=== PATIENT | male | born 1955 | race Two or more races ===

== ENCOUNTER 2018-02-02 09:47 | Emergency (ER) | payer BC ==
[2018-02-02 09:59] VITALS: TEMP 98.1; BMI 40.7
[2018-02-02] MEDS ORDERED: ASPIRIN 81 MG CHEWABLE TABLETS PO ONE (11:24)
--- NOTE | 2018-02-02 11:39 | PDOC ---
History of Present Illness <Matti Leong - Last Filed: 02/02/18 13:12> - General History Source: Patient Exam Limitations: No Limitations - History of Present Illness Initial Comments: 02/02/18 12:13 The patient is a 62 year old female with past medical history of hypertension who presents to the ED with complaints of headache and elevated blood pressure since yesterday. He reports a squeezing headache with associated blurred vision and states this is consistent whenever his blood pressure is elevated. He reports going to his primary yesterday after onset of symptoms and monitored his blood pressure there. He was then sent home and realized his blood pressure remained elevated. He denies any associated chest pain, palpitations, shortness of breath, or focal neurological deficits. Denies any fevers/chills. PCP: Dr. Darlyn Friend: Former smoker. Denies any drugs/alcohol use. <Chantel Leslie - Last Filed: 02/02/18 14:27> - General Chief Complaint: Blood Pressure Problem Stated Complaint: BLOOD PRESSURE PROBLEM Time Seen by Provider: 02/02/18 11:24 Past History - Past Medical History COPD: No HTN: Yes - Surgical History Appendectomy: Yes - Immunization History Immunization Up to Date: Yes - Suicide/Smoking/Psychosocial Hx Smoking History: Former smoker Have you smoked in the past 12 months: No If you are a former smoker, when did you quit?: 22 YEARS AGO Information on smoking cessation initiated: No Hx Alcohol Use: No Drug/Substance Use Hx: No <Matti Leong - Last Filed: 02/02/18 13:12> <Chantel Leslie - Last Filed: 02/02/18 14:27> - Past Medical History Allergies/Adverse Reactions: Allergies Allergy/AdvReac Type Severity Reaction Status Date / Time No Known Drug Allergies Allergy Verified 02/02/18 09:59 Home Medications: Ambulatory Orders Nebivolol HCl [Bystolic] 10 mg PO BID 08/02/12 Olmesartan Med/Amlodipine/Hctz [Tribenzor 40-10-25 mg Tablet] 1 each PO DAILY Aspirin [[place] Aspirin] 81 mg PO DAILY 06/17/15 Review of Systems - Review of Systems Constitutional: No: Chills, Fever HEENTM: No: Recent change in vision, Double Vision Respiratory: No: Cough, Orthopnea, Shortness of Breath, SOB with Exertion Cardiac (ROS): No: Chest Pain, Edema, Syncope ABD/GI: No: Nausea, Vomiting Neurological: Yes: Headache. No: Weakness, Dizziness All Other Systems: Reviewed and Negative <Matti Leong - Last Filed: 02/02/18 13:12> *Physical Exam - Vital Signs Last Vital Signs Temp Pulse Resp BP Pulse Ox 98.1 F 58 L 18 119/112 96 02/02/18 09:55 02/02/18 09:55 02/02/18 09:55 02/02/18 09:55 02/02/18 09:55 <Matti Leong - Last Filed: 02/02/18 13:12> - Vital Signs Last Vital Signs Temp Pulse Resp BP Pulse Ox 98.1 F 58 L 18 119/112 96 02/02/18 09:55 02/02/18 09:55 02/02/18 09:55 02/02/18 09:55 02/02/18 09:55 - Physical Exam Comments: 02/02/18 12:13 GENERAL: The patient is awake, alert, and fully oriented, in no acute distress. HEAD: Normal with no signs of trauma. EYES: Pupils equal, round and reactive to light, extraocular movements intact, sclera anicteric, conjunctiva clear with no pallor. ENT: Ears normal, nares patent, oropharynx clear without exudates. Moist mucous membranes. NECK: Normal range of motion, supple without lymphadenopathy, JVD, or masses. LUNGS: Breath sounds equal, clear to auscultation bilaterally. No wheeze/ crackles. HEART: Regular rate and rhythm, normal S1 and S2 without murmur or rub. ABDOMEN: Soft/nontender/nondistended. BS wnl. No guarding or rebound. No palpable masses. No hepatosplenomegaly. EXTREMITIES: Normal range of motion, no edema. No clubbing or cyanosis. No cords, erythema, or tenderness. PSYCH: Normal mood, normal affect. SKIN: Warm, Dry, normal turgor, no rashes or lesions noted. NEURO: Mental status: The patient is alert and oriented x3. Cranial nerves: Cranial nerves II through XII are intact Motor: The upper extremities are 5 over 5 in all muscle groups. The lower extremities are 5 over 5 in all muscle groups. No pronator drift. Sensation: Sensation is intact to light touch throughout. Cerebellar: Roiihr-dgptch-ynbh is normal in both upper extremities. Heel-knee- winkler is normal in both lower extremities. Reflexes: 2+ and symmetric in the upper and lower extremities. Gait: Normal. Heel and toe walking are normal. Tandem gait is normal. <Chantel Leslie - Last Filed: 02/02/18 14:27> Heart Score/ECG Review #1 ECG reviewed & interpreted by me at: 11:33 General ECG Interpretation: Sinus Rhythm, Normal Rate (54), Normal Intervals ( qtc 394), No acute ischemic changes (inf Q waves) <Matti Leong - Last Filed: 02/02/18 13:12> ED Treatment Course - LABORATORY CBC & Chemistry Diagram: 02/02/18 11:32 02/02/18 11:32 - RADIOLOGY Radiology Studies Ordered: Category Date Time Status CHEST X-RAY PORTABLE* [RAD] Stat Radiology 02/02/18 11:25 Ordered <Matti Leong - Last Filed: 02/02/18 13:12> - LABORATORY CBC & Chemistry Diagram: 02/02/18 11:32 02/02/18 11:32 - ADDITIONAL ORDERS Additional order review: 02/02/18 11:32 RBC 5.42 MCV 91.8 MCHC 33.8 RDW 13.7 MPV 9.4 Neutrophils % 68.0 Lymphocytes % 19.9 D Monocytes % 8.6 Eosinophils % 2.5 Basophils % 1.0 - RADIOLOGY Radiograph Interpretation: 02/02/18 12:[address] by [address] Reese reports no acute intracranial pathology. 02/02/18 14:27 Chest X-ray as reviewed by Dr. Rondon reports weak inspiration and congestive changes. - Medications Given in the ED: ED Medications Discontinued Medications Generic Name Dose Route Start Last Admin Trade Name Freq PRN Reason Stop Dose Admin Aspirin 162 mg 02/02/18 11:24 02/02/18 11:52 Asa - PO 02/02/18 11:25 162 mg ONCE ONE Administration Clonidine 0.1 mg 02/02/18 11:47 02/02/18 11:52 Catapres - PO 02/02/18 11:48 0.1 mg ONCE ONE Administration Hydralazine HCl 25 mg 02/02/18 11:47 02/02/18 11:52 Apresoline - PO 02/02/18 11:48 25 mg ONCE ONE Administration <Chantel Leslie - Last Filed: 02/02/18 14:27> Medical Decision Making - Medical Decision Making 02/02/18 11:59 A portion of this note was documented by scribe services under my direction. I have reviewed the details of the note, within reason, and agree with the documentation with the following case summary and management plan written by me. 62-year-old male with history of hypertension developed gradual onset mild headache yesterday that self resolves since then has been measuring his blood pressure and noted to be elevated at 160/[address] Santizo yesterday and spent the day in the office monitoring his blood pressure, this morning his blood pressure remained elevated so he presents for evaluation. Complaining of mild persistent headache, no vision changes or speech changes/nausea/vomiting/ focal deficit/chest pain/shortness of breath. No recent changes to his medications, denies any other complaints. 150/109, hr 62 Well-appearing, speaking full sentences, no distress Pupils are equal round reactive to light, neck is supple Heart and lungs are clear and regular Abdomen benign Neurologically intact 52-year-old male with elevated blood pressure, asymptomatic except for mild headache without focal neurological findings. Seen by PMD yesterday, presents here for persistent blood pressure elevation. Check labs, CT head, EKG Dose additional hydralazine and clonidine Reassess and disposition accordingly 02/02/18 13:13 labs wnl, ct head without acute pathology. BP 161/99, slightly improved diastolic. Remains sxs free, feels well. CXR with slight congestion, no acute pathology. <Matti Leong - Last Filed: 02/02/18 13:12> *DC/Admit/Observation/Transfer <Matti Leong - Last Filed: 02/02/18 13:12> - Attestations Scribe Attestion: 02/02/18 12:14 Documentation prepared by Chantel Leslie, acting as general medical practitioner for Matti Leong MD. <Chantel Leslie - Last Filed: 02/02/18 14:27> Diagnosis at time of Disposition: Hypertension Qualifiers: Hypertension type: unspecified Qualified Code(s): I10 - Essential (primary) hypertension - Discharge Dispostion Disposition: HOME Condition at time of disposition: Stable - Referrals Referrals: Liya Santizo MD [Primary Care Provider] - - Patient Instructions Printed Discharge Instructions: DI for High Blood Pressure Additional Instructions: Activity as tolerated. Stay hydrated. Blood tests and a CT of the head today showed no acute abnormalities. Your blood pressure was slightly improved after additional doses of your medications , but is still a bit higher than your usual. Monitor your blood pressure IF you feel unwell or develop any new symptoms. Otherwise check your blood pressure in a few days to see if it remains high. If so, contact Dr. Santizo as there may need to be changes to your medications or doses. Continue your medications as previously prescribed by your physician. You should follow up with Dr. Santizo as soon as possible regarding today's emergency department visit. Return to the emergency department for any new or concerning symptoms, particularly persistent or worsening headache, chest pain or difficulty breathing, vomiting, vision changes or speech changes or focal weakness. - Post Discharge Activity
[2018-02-02 11:44] LABS: EOS % 2.5 % (0-4.5); HEMATOCRIT 49.8 % (35.4-49); HEMOGLOBIN 16.8 GM/dL (11.7-16.9); LYMPH % 19.9 % (8-40); MCH 31.1 pg (25.7-33.7); MCHC 33.8 g/dl (32.0-35.9); MEAN CELL VOLUME 91.8 fl (80-96); MEAN PLT VOLUME 9.4 fl (7.5-11.1); MONO % 8.6 % (3.8-10.2); PLATELET COUNT 234 K/MM3 (134-434); RBC 5.42 M/mm3 (4.00-5.60); RDW 13.7 % (11.9-15.9); WHITE BLOOD COUNT 8.6 K/mm3 (4.0-10.0)
[2018-02-02] MEDS ORDERED: cloNIDine HCL 0.1 MG TABLET PO ONE (11:47)
[2018-02-02] MEDS ORDERED: hydrALAZINE HCL 25 MG TABLET (FP) PO ONE (11:47)
[2018-02-02] MEDS ORDERED: cloNIDine HCL 0.1 MG TABLET ONE (11:52)
[2018-02-02] MEDS ORDERED: hydrALAZINE HCL 25 MG TABLET (FP) ONE (11:52)
[2018-02-02] MEDS ORDERED: ASPIRIN 81 MG CHEWABLE TABLETS ONE (11:52)
[2018-02-02 12:14] LABS: INR 0.98 (0.83-1.09); PROTHROMBIN TIME (PATIENT) 11.1 SEC (9.7-13.0)
[2018-02-02 12:15] LABS: ALBUMIN 3.8 g/dl (3.4-5.0); ANION GAP 8 MMOL/L (8-16); BILIRUBIN,TOTAL 0.5 mg/dL (0.2-1.0); BLOOD UREA NITROGEN 16 mg/dL (7-18); CALCIUM 9.1 mg/dL (8.5-10.1); CHLORIDE 105 mmol/L (98-107); CO2 31 mmol/L (21-32); CREATININE 0.9 mg/dL (0.7-1.3); GLUCOSE,RANDOM 91 mg/dL (74-106); MAGNESIUM 2.5 mg/dL (1.8-2.4); POTASSIUM 3.9 mmol/L (3.5-5.1); SGOT/AST 20 U/L (15-37); SGPT/ALT 30 U/L (12-78); SODIUM 144 mmol/L (136-145); TOT PROT 7.3 g/dl (6.4-8.2)
[2018-02-02 12:18] LABS: ALK PHOS 102 U/L (45-117)
[2018-02-02 13:39] VITALS: BP 133/89; PULSE 56
--- NOTE | 2018-02-03 10:32 | EKG ---
Test Reason : Blood Pressure : / mmHG Vent. Rate : 054 BPM Atrial Rate : 054 BPM P-R Int : 152 ms QRS Dur : 090 ms QT Int : 416 ms P-R-T Axes : 027 -09 -14 degrees QTc Int : 394 ms SINUS BRADYCARDIA INFERIOR INFARCT (CITED ON OR BEFORE 19-JUL-2012) ABNORMAL ECG WHEN COMPARED WITH ECG OF 17-JUN-2015 23:15, NONSPECIFIC T WAVE ABNORMALITY NOW EVIDENT IN INFERIOR LEADS NONSPECIFIC T WAVE ABNORMALITY NO LONGER EVIDENT IN ANTERIOR LEADS Confirmed by MIR ELLIS, KULDEEP ([id number]) on 02/03/2018 10:32:14 AM Referred By: Confirmed By:KULDEEP HESTER MD
== END 2018-02-02 13:45 | disposition home or self-care (01) ==
LOC: JER 09:47
DX: I10 Essential (primary) hypertension (principal)
CPT/HCPCS: 36415; 70450-TC; 71045-TC-FY; 80053; 82550; 83735; 83880; 84484; 85025; 85610; 93005; 93010; 99282-25; J0735

== ENCOUNTER 2018-07-09 23:39 | Inpatient (IN) | payer BC, OTHER ==
--- NOTE | 2018-07-10 00:12 | PDOC ---
History of Present Illness - General Chief Complaint: Blood Pressure Problem Stated Complaint: HIGH BLOOD PRESURE Time Seen by Provider: 07/10/18 00:10 History Source: Patient Exam Limitations: No Limitations - History of Present Illness Initial Comments: 63 yo M w a pmh of HTN, dementia who presents to the ED with high blood pressure and a headache since 9:45 pm this evening. The headache feels like a band around his head but is not associated with any blurry vision, nausea, vomiting, or ataxia and was not worst at onset. He went over to his daughter and said he feels something is wrong, then she took his blood pressure realized it was very elevated and he took an extra one of his bystolic nebivolol pills - 20 mg as well as an extra atorvastatin. He denies any associated chest pain, palpitations, shortness of breath, focal neurological deficits, back pain, abdominal pain, fevers/chills, flank pain, difficulty breathing dysuria, frequency, or urgency. PCP: Dr. Darlyn Friend: Former smoker. Denies any drugs/alcohol use. PSH: None reported Allergies: NKA, NKDA Past History - Past Medical History Allergies/Adverse Reactions: Allergies Allergy/AdvReac Type Severity Reaction Status Date / Time No Known Drug Allergies Allergy Verified 07/09/18 23:59 Home Medications: Ambulatory Orders Nebivolol HCl [Bystolic] 10 mg PO BID 08/02/12 Olmesartan Med/Amlodipine/Hctz [Tribenzor 40-10-25 mg Tablet] 1 each PO DAILY Aspirin [[place] Aspirin] 81 mg PO DAILY 06/17/15 Valsartan [Diovan] 40 mg PO DAILY #30 tablet 07/10/18 COPD: No HTN: Yes - Surgical History Appendectomy: Yes - Immunization History Immunization Up to Date: Yes - Suicide/Smoking/Psychosocial Hx Smoking History: Never smoked Have you smoked in the past 12 months: No If you are a former smoker, when did you quit?: 22 YEARS AGO Information on smoking cessation initiated: No Hx Alcohol Use: No Drug/Substance Use Hx: No Review of Systems - Review of Systems Able to Perform ROS?: Yes Comments:: CONSTITUTIONAL: Absent: fever, no chills, no fatigue EYES: Absent: visual changes ENT: Absent: ear pain, no sore throat CARDIOVASCULAR: Absent: chest pain, no palpitations RESPIRATORY: Absent: cough, no SOB GI: Absent: abdominal pain, no nausea, no vomiting, no constipation, no diarrhea GENITOURINARY: Absent: dysuria, no frequency, no hematuria MUSKULOSKELETAL: Absent: back pain, no arthralgia, no myalgia SKIN: Absent: rash NEURO: Present: headache *Physical Exam - Vital Signs Last Vital Signs Temp Pulse Resp BP Pulse Ox 98.1 F 54 L 20 204/131 H 96 07/09/18 23:59 07/09/18 23:59 07/09/18 23:59 07/09/18 23:59 07/09/18 23:59 - Physical Exam Comments: GENERAL: Well-appearing, well-nourished. No apparent distress. HEENT: Normocephalic, atraumatic. PERRL, EOM intact. CARDIOVASCULAR: Normal S1, S2. Bradycardic rate and regular rhythm. PULMONARY: No evidence of respiratory distress. Lungs clear to auscultation bilaterally. No wheezing, rales or rhonchi. ABDOMEN: Soft, non-distended, non-tender. EXTREMITIES: Normal ROM in all four extremities. No gross deformities. SKIN: Warm, dry. No rash NEUROLOGICAL: No focal neurological deficits. CN 2-12 grossly intact. No retinal hemorrhages. Normal Gait. Moderate Sedation - Procedure Monitoring Vital Signs: Procedure Monitoring Vital Signs Temperature 98.1 F 07/09/18 23:59 Pulse Rate 54 L 07/09/18 23:59 Respiratory Rate 20 07/09/18 23:59 Blood Pressure 204/131 H 07/09/18 23:59 O2 Sat by Pulse Oximetry (%) 96 07/09/18 23:59 ED Treatment Course - LABORATORY CBC & Chemistry Diagram: 07/10/18 00:30 07/10/18 00:30 Medical Decision Making - Medical Decision Making 63 yo M w a pmh of HTN, dementia who presents to the ED with high blood pressure and a headache since 9:45 pm this evening. The headache feels like a band around his head but is not associated with any blurry vision, nausea, vomiting, or ataxia and was not worst at onset. He went over to his daughter and said he feels something is wrong, then she took his blood pressure realized it was very elevated and he took an extra one of his bystolic nebivolol pills - 20 mg as well as an extra atorvastatin. 185/110 BP at bedside heart rate 56 - likely due to taking nebivolol DDx IBNLT: Hypertensive emergency vs urgency, hypertensive encephelopathy, CVA vs TIA, meningitis vs encephelatis, cluster vs migraine vs tension headache Plan: Labs, Urine, EKG, CXR, Head CT, lower BP, re-assess. Labs unremarkable other than a BUN of 24 and 1+ proteinura - likely a result of uncontrolled hypertension. Head CT unremarkable. BP will not go down despite attempting to lower it with nitroglycerin sublingually, paste, clonidine and diovan Consulted Dr. [facility]: They reccommend trying IV hydralazine and then his po hydralazine. *DC/Admit/Observation/Transfer Diagnosis at time of Disposition: Hypertensive urgency, malignant - Discharge Dispostion Decision to Admit order: Yes - Prescriptions Prescriptions: Valsartan [Diovan] 40 mg PO DAILY #30 tablet - Referrals - Patient Instructions - Post Discharge Activity
[2018-07-10] MEDS ORDERED: LABETALOL HCL 5 MG/1 ML (100MG/20 ML VIAL) IVPUSH STA (00:19)
--- NOTE | 2018-07-10 00:21 | PDOC ---
Attending Attestation - HPI HPI: 07/10/18 01:03 The patient is a 63 year old male with a significant past medical history of HTN and dementia who presents to the ED with headache and nausea at 9:45 pm earlier today. He states he suddenly felt off. Patients daughter took the patients blood pressure and it read 220/110/ Patient took his HTN medication with no relief. Denies blurry vision. Denies fever. Denies chest pain or shortness of breath. Denies abdominal pain, nausea, vomiting, diarrhea. Denies any other symptoms. - Physicial Exam PE: 07/10/18 01:03 GENERAL: Well developed, well nourished. Awake and alert. No acute distress. HEENT: Normocephalic, atraumatic. PERRLA, EOMI. No conjunctival pallor. Sclera are non- icteric. Moist mucous membranes. Oropharynx is clear. NECK: Supple. Full ROM. No JVD. Carotid pulses 2+ and symmetric, without bruits. No thyromegaly. No lymphadenopathy. CARDIOVASCULAR: Regular rate and rhythm. No murmurs, rubs, or gallops. Distal pulses are 2+ and symmetric. PULMONARY: No evidence of respiratory distress. Lungs clear to auscultation bilaterally. No wheezing, rales or rhonchi. ABDOMINAL: Soft. Non-tender. Non-distended. No rebound or guarding. No organomegaly. Normoactive bowel sounds. MUSCULOSKELETAL Normal range of motion at all joints. No bony deformities or tenderness. No CVA tenderness. EXTREMITIES: + bilateral pitting edema in the lower extremities, up to the calf. No cyanosis. No clubbing. No calf tenderness. SKIN: Warm and dry. Normal capillary refill. No rashes. No jaundice. NEUROLOGICAL: Alert, awake, appropriate. Cranial nerves 2-12 intact. No deficits to light touch and temperature in face, upper extremities and lower extremities. No motor deficits in the in face, upper extremities and lower extremities. Normoreflexic in the upper and lower extremities. Normal speech. Toes are down- going bilaterally. Gait is normal without ataxia. PSYCHIATRIC: Cooperative. Good eye contact. Appropriate mood and affect. <Parker Gonsalves - Last Filed: 07/10/18 01:03> - Resident Resident Name: Jason Sanchez - ED Attending Attestation I have performed the following: I have examined & evaluated the patient, The case was reviewed & discussed with the resident, I agree w/resident's findings & plan - Medical Decision Making 07/10/18 01:36 Patient Name: YOLIS SUAREZ THIS IS A PRELIMINARY REPORT FROM [facility] DATE OF SERVICE: 2018-07-10 01:24:04 IMAGES: 172 EXAM: HEAD CT WITHOUT CONTRAST HISTORY: Headache COMPARISON: None. FINDINGS: Brain parenchyma is normal in attenuation with no mass or hematoma. There is no midline shift. Euabnks and white matter differentiation is normal. Ventricles are normal. Sulci and extra-axial CSF spaces are normal. Intracranial vascular structures are normal in attenuation. There is no calvarial fracture. Paranasal sinuses are normally aerated. IMPRESSION: No acute findings 07/10/18 06:58 Daughter AMBREEN (works in the hospital) [phone] 07/14/18 22:08 Pt will be admitted <Lizzie Foster - Last Filed: 07/14/18 22:08> Attestations - Attestations 07/10/18 01:03 Documentation prepared by Parker Gonsalves, acting as medical device sales for Lizzie Foster MD <Parker Gonsalves - Last Filed: 07/10/18 01:03>
[2018-07-10] MEDS ORDERED: NITROGLYCERIN SUBLINGUAL 1/150 0.4 MG TAB SL ONE (00:28)
[2018-07-10] MEDS ORDERED: VALSARTAN 40 MG TABLET (FP) PO ONE ×2 (00:53→02:04)
[2018-07-10] MEDS ORDERED: NITROGLYCERIN 2% OINTMENT - 1GM PACKET TD ONE ×3 (00:53→01:15)
[2018-07-10 00:54] LABS: BASO % 0.9 % (0-2.0); EOS % 3.2 % (0-4.5); HEMATOCRIT 47.5 % (35.4-49); HEMOGLOBIN 16.4 GM/dL (11.7-16.9); LYMPH % 28.5 % (8-40); MCH 32.1 pg (25.7-33.7); MCHC 34.5 g/dl (32.0-35.9); MEAN PLT VOLUME 9.7 fl (7.5-11.1); MONO % 11.2 % (3.8-10.2); NEUT % 56.2 % (42.8-82.8); PLATELET COUNT 204 K/MM3 (134-434); RBC 5.11 M/mm3 (4.00-5.60); RDW 13.8 % (11.9-15.9); WHITE BLOOD COUNT 6.9 K/mm3 (4.0-10.0)
[2018-07-10 01:08] LABS: INR 0.95 (0.83-1.09); PROTHROMBIN TIME (PATIENT) 11.2 SEC (9.7-13.0)
[2018-07-10] MEDS ORDERED: VALSARTAN 80 MG TABLET (UD) ONE ×2 (01:14→02:08)
[2018-07-10 01:23] LABS: URINE APPEARANCE CLEAR; URINE BILIRUBIN NEGATIVE (<2.0 mg/dL); URINE COLOR YELLOW; URINE GLUCOSE (UA) NEGATIVE (NEGATIVE); URINE KETONE NEGATIVE (NEGATIVE); URINE LEUK ESTERASE NEGATIVE (NEGATIVE); URINE NITRITE NEGATIVE (NEGATIVE); URINE PROTEIN 1+ (NEGATIVE); URINE UROBILINOGEN NEGATIVE mg/dL (0.2-1.0)
[2018-07-10 01:25] LABS: ALBUMIN 3.5 g/dl (3.4-5.0); ALK PHOS 105 U/L (45-117); ANION GAP 5 MMOL/L (8-16); BILIRUBIN,TOTAL 0.3 mg/dL (0.2-1); BLOOD UREA NITROGEN 24 mg/dL (7-18); CALCIUM 8.6 mg/dL (8.5-10.1); CHLORIDE 108 mmol/L (98-107); CO2 30 mmol/L (21-32); GLUCOSE,RANDOM 125 mg/dL (74-106); POTASSIUM 4.2 mmol/L (3.5-5.1); SGOT/AST 20 U/L (15-37); SGPT/ALT 28 U/L (13-61); SODIUM 143 mmol/L (136-145); TOT PROT 6.5 g/dl (6.4-8.2)
[2018-07-10 01:40] LABS: EPI CELLS RARE /HPF (FEW); URINE HYALINE CAST 4 /lpf; URINE MUCUS MODERATE
[2018-07-10] MEDS ORDERED: cloNIDine HCL 0.1 MG TABLET PO ONE (02:03)
[2018-07-10] MEDS ORDERED: cloNIDine HCL 0.1 MG TABLET ONE (02:08)
[2018-07-10] MEDS ORDERED: morphine CARPU-JECT 2 MG/1 ML DISP.SYRIN IVPUSH ONE (04:00)
[2018-07-10] MEDS ORDERED: hydrALAZINE HCL 20 MG/ML VIAL IVPUSH ONE (04:09)
[2018-07-10] MEDS ORDERED: MORPHINE SULFATE 2 MG/ML VIAL ONE (04:28)
[2018-07-10] MEDS ORDERED: hydrALAZINE HCL 20 MG/ML VIAL ONE (04:29)
--- NOTE | 2018-07-10 04:33 | HP ---
Admitting History and Physical - Primary Care Physician PCP: Liya Santizo - Admission Chief Complaint: Elevated Blood Pressure, Headache History of Present Illness: This is a 63 y/o man PMHx of HTN, Dementia (mild). Who presents to the ED with elevated BP and headache since 9pm last night. Patient reports the headache as a type band around his head. He reports that his daughter took his BP and it was elevated and he took another dose of his Bystolic and Lipitor. Patient denies chest pain, palpitations, SOB, dizziness, numbness, AP, N/V/D, constipation, dysuria. 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) Cardiovascular: Yes: HTN - Past Surgical History Past Surgical History: Yes: Appendectomy - Smoking History Smoking history: Former smoker Have you smoked in the past 12 months: No If you are a former smoker, when did you quit?: 22 YEARS AGO - Alcohol/Substance Use Hx Alcohol Use: Yes (occasional) History of Substance Use: reports: None - Social History Usual Living Arrangement: Yes: With Spouse ADL: Independent History of Recent Travel: No Home Medications - Allergies Allergies/Adverse Reactions: Allergies Allergy/AdvReac Type Severity Reaction Status Date / Time No Known Drug Allergies Allergy Verified 07/09/18 23:59 - Home Medications Home Medications: Ambulatory Orders Nebivolol HCl [Bystolic] 10 mg PO BID 08/02/12 Aspirin [[place] Aspirin] 81 mg PO DAILY 06/17/15 Atorvastatin Ca [Lipitor] 40 mg PO HS 07/10/18 Valsartan [Diovan] 40 mg PO DAILY #30 tablet 07/10/18 Family Disease History - Family Disease History Family Disease History: Heart Disease: Mother (HTN), CA: Brother (Liver ) Review of Systems - Review of Systems Constitutional: reports: No Symptoms Eyes: reports: No Symptoms HENT: reports: No Symptoms Neck: reports: No Symptoms Cardiovascular: reports: No Symptoms Respiratory: reports: No Symptoms Gastrointestinal: reports: No Symptoms Genitourinary: reports: No Symptoms Breasts: reports: No Symptoms Reported Musculoskeletal: reports: No Symptoms Integumentary: reports: No Symptoms Neurological: reports: Headache Endocrine: reports: No Symptoms Hematology/Lymphatic: reports: No Symptoms Psychiatric: reports: No Symptoms Physical Examination Vital Signs: Vital Signs Temperature 98.1 F 07/09/18 23:59 Pulse Rate 54 L 07/09/18 23:59 Respiratory Rate 20 07/09/18 23:59 Blood Pressure 204/131 H 07/09/18 23:59 O2 Sat by Pulse Oximetry (%) 96 07/09/18 23:59 Constitutional: Yes: Well Nourished, No Distress, Calm Eyes: Yes: WNL, Conjunctiva Clear, EOM Intact, PERRL HENT: Yes: WNL, Atraumatic, Normocephalic Neck: Yes: WNL, Supple, Trachea Midline Cardiovascular: Yes: Regular Rate and Rhythm, Murmur (systolic), S1, S2 Respiratory: Yes: CTA Bilaterally, Hyperresonant Gastrointestinal: Yes: WNL Renal/: Yes: WNL Breast(s): Yes: WNL Musculoskeletal: Yes: WNL Extremities: Yes: WNL Edema: No Peripheral Pulses WNL: Yes Neurological: Yes: WNL, Alert, Oriented, Cran Nerves II-XII Intact ...Motor Strength: WNL Psychiatric: Yes: WNL, Alert, Oriented Labs: CBC, BMP 07/10/18 00:30 07/10/18 00:30 Imaging - Results Chest X-ray: Report Reviewed (No acute pathology), Image Reviewed Cat Scan: Report Reviewed (No ICH, mass or lesion), Image Reviewed EKG: Image Reviewed (NSR, inferior infarct age undetermined) Problem List - Problems (1) Hypertensive urgency, malignant Assessment/Plan: Uncontrolled HTN Diovan, Clonidine, Nitropaste, NTG sl, Hydralazine given in ED without improvement Continue cardiac monitoring Appreciate Cardiology consult Head CT- neg ICH EKG- NSR inferior infarct, age undetermined, no acute changes compared to prior study 02/02/18 Renal US r/o stenosis Continue home meds with additional agent for improved response Monitor CBC, BMP Seizure Precautions Fall Precautions Code(s): I16.0 - HYPERTENSIVE URGENCY (2) Headache Assessment/Plan: Likely secondary to elevated BP Percocet given in ED Tylenol prn Code(s): R51 - HEADACHE Qualifiers: Headache type: unspecified Headache chronicity pattern: unspecified pattern Intractability: not intractable Qualified Code(s): R51 - Headache (3) Dementia Assessment/Plan: Mild, appears functional Continue Aricept Code(s): F03.90 - UNSPECIFIED DEMENTIA WITHOUT BEHAVIORAL DISTURBANCE Assessment/Plan This is a 63 y/o man PMHx of: HTN, Dementia admitted to Telemetry for Hypertensive Urgency for further evaluation of their emergent condition. Plan: See Problem List FEN PO fluids as tolerated Replete lytes prn Low Na Diet DVT ppx OOB SCDs Heparin SQ Dispo: Requires Inpatient Care Visit type - Emergency Visit Emergency Visit: Yes ED Registration Date: 07/10/18 Care time: The patient presented to the Emergency Department on the above date and was hospitalized for further evaluation of their emergent condition. - New Patient This patient is new to me today: Yes Date on this admission: 07/10/18 - Critical Care Critical Care patient: No
[2018-07-10 09:40] LABS: BASO % 0.9 % (0-2.0); EOS % 0.8 % (0-4.5); HEMATOCRIT 47.7 % (35.4-49); HEMOGLOBIN 16.8 GM/dL (11.7-16.9); MCH 32.6 pg (25.7-33.7); MCHC 35.2 g/dl (32.0-35.9); MEAN CELL VOLUME 92.7 fl (80-96); MEAN PLT VOLUME 9.6 fl (7.5-11.1); MONO % 7.2 % (3.8-10.2); NEUT % 71.1 % (42.8-82.8); PLATELET COUNT 191 K/MM3 (134-434); RBC 5.14 M/mm3 (4.00-5.60); RDW 13.6 % (11.9-15.9); WHITE BLOOD COUNT 7.7 K/mm3 (4.0-10.0)
--- NOTE | 2018-07-10 09:50 | EKG ---
Test Reason : Blood Pressure : / mmHG Vent. Rate : 062 BPM Atrial Rate : 062 BPM P-R Int : 168 ms QRS Dur : 090 ms QT Int : 434 ms P-R-T Axes : 024 -20 -28 degrees QTc Int : 440 ms NORMAL SINUS RHYTHM INFERIOR INFARCT (CITED ON OR BEFORE 19-JUL-2012) ABNORMAL ECG WHEN COMPARED WITH ECG OF 02-FEB-2018 11:33, NO SIGNIFICANT CHANGE WAS FOUND Confirmed by LIBBY ELLIS, JESSICA ([id number]) on 07/10/2018 9:50:32 AM Referred By: Confirmed By:JESSICA SOUZA MD
[2018-07-10 10:41] LABS: BLOOD UREA NITROGEN 18 mg/dL (7-18); CHLORIDE 109 mmol/L (98-107); CO2 25 mmol/L (21-32); CREATININE 0.8 mg/dL (0.55-1.3); GLUCOSE,RANDOM 124 mg/dL (74-106); POTASSIUM 3.7 mmol/L (3.5-5.1); SODIUM 142 mmol/L (136-145)
[2018-07-10 10:42] LABS: ANION GAP 8 MMOL/L (8-16); CALCIUM 8.6 mg/dL (8.5-10.1); MAGNESIUM 2.1 mg/dL (1.8-2.4); PHOSPHOROUS 2.6 mg/dL (2.5-4.9)
--- NOTE | 2018-07-10 10:52 | PN ---
Progress Note, Physician Chief Complaint: patient admitted for headache and elevated blood pressure, per patient he is complaint with his medications but yesterday he started having headache and checked his BP it was very high in 170's and came to the ER on ER he got labetolol and hydralazine clonidine and diovan currently in bed no chest pain no dizziness has a slight headache - Current Medication List Current Medications: Active Medications Aspirin (Asa -) 81 mg PO DAILY [facility] Atorvastatin Calcium (Lipitor -) 40 mg PO HS [facility] Clonidine (Catapres -) 0.1 mg PO BID [facility] Heparin Sodium (Porcine) (Heparin -) 5,000 unit SQ BID [facility] Hydralazine HCl (Apresoline -) 25 mg PO TID [facility] - Objective Vital Signs: Vital Signs Temperature 97.6 F 07/10/18 07:34 Pulse Rate 63 07/10/18 07:34 Respiratory Rate 15 07/10/18 07:34 Blood Pressure 178/119 H 07/10/18 07:34 O2 Sat by Pulse Oximetry (%) 98 07/10/18 07:34 Constitutional: Yes: Calm Cardiovascular: Yes: Regular Rate and Rhythm, S1, S2 Respiratory: Yes: CTA Bilaterally Gastrointestinal: Yes: Normal Bowel Sounds, Soft Edema: No Neurological: Yes: Alert, Oriented Labs: CBC, BMP 07/10/18 09:25 07/10/18 09:25 INR, PTT INR 0.95 (0.83-1.09) 07/10/18 00:30 Problem List - Problems (1) Dementia Assessment/Plan: aricept 5mg Code(s): F03.90 - UNSPECIFIED DEMENTIA WITHOUT BEHAVIORAL DISTURBANCE (2) Headache Assessment/Plan: secondary to elevated BP telemetry cardiology eval cloniidine hydralazine bystolic ct head negative dvt ppx scds early ambulation Code(s): R51 - HEADACHE Qualifiers: Headache type: unspecified Headache chronicity pattern: unspecified pattern Intractability: not intractable Qualified Code(s): R51 - Headache (3) Hypertension Assessment/Plan: clonidine 0.1mg bid hydralazine 25mg tid bystolic 20mg telemetry echo Code(s): I10 - ESSENTIAL (PRIMARY) HYPERTENSION Qualifiers: Hypertension type: unspecified Qualified Code(s): I10 - Essential (primary ) hypertension
[2018-07-10] MEDS ORDERED: hydrALAZINE HCL 25 MG TABLET (FP) ONE (13:42)
[2018-07-10] MEDS ORDERED: ASPIRIN 81 MG CHEWABLE TABLETS ONE (13:42)
[2018-07-10] MEDS ORDERED: HEPARIN NA (PORCINE) 5,000 UNITS/ML 1ML VIAL ONE (13:42)
--- NOTE | 2018-07-10 13:50 | CON.CARD ---
Consult Consult Specialty:: cardiology Referred by:: Darlyn Reason for Consultation:: Symptomatic hypertension - History of Present Illness Chief Complaint: Headache and generalized weakness History of Present Illness: The patient is a 63-year-old obese man, with mild dementia, hypertension, now admitted with generalized weakness and elevated blood pressure. The patient looks comfortable. Denies chest pains and shortness of breath. No palpitations. 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 Cardio/Vascular: Yes: HTN - Alcohol/Substance Use Hx Alcohol Use: No History of Substance Use: reports: None - Smoking History Smoking history: Never smoked Have you smoked in the past 12 months: No If you are a former smoker, when did you quit?: 22 YEARS AGO Home Medications - Allergies Allergies/Adverse Reactions: Allergies Allergy/AdvReac Type Severity Reaction Status Date / Time No Known Drug Allergies Allergy Verified 07/09/18 23:59 - Home Medications Home Medications: Ambulatory Orders Nebivolol HCl [Bystolic] 10 mg PO BID 08/02/12 Aspirin [[place] Aspirin] 81 mg PO DAILY 06/17/15 Atorvastatin Ca [Lipitor] 40 mg PO HS 07/10/18 Valsartan [Diovan] 40 mg PO DAILY #30 tablet 07/10/18 Review of Systems - Review of Systems Constitutional: reports: Malaise Eyes: reports: No Symptoms HENT: reports: No Symptoms Neck: reports: Stiffness Cardiovascular: reports: No Symptoms Respiratory: reports: No Symptoms Gastrointestinal: reports: No Symptoms Genitourinary: reports: No Symptoms Breasts: reports: No Symptoms Reported Musculoskeletal: reports: No Symptoms Integumentary: reports: No Symptoms Neurological: reports: Headache Endocrine: reports: No Symptoms Hematology/Lymphatic: reports: No Symptoms Psychiatric: reports: No Symptoms Vital Signs: Vital Signs Temperature 97.6 F 07/10/18 07:34 Pulse Rate 63 07/10/18 07:34 Respiratory Rate 15 07/10/18 07:34 Blood Pressure 178/119 H 07/10/18 07:34 O2 Sat by Pulse Oximetry (%) 98 07/10/18 07:34 Constitutional: Yes: Well Nourished, No Distress, Calm Eyes: Yes: WNL, Conjunctiva Clear, EOM Intact HENT: Yes: WNL, Atraumatic, Normocephalic Neck: Yes: WNL, Supple, Trachea Midline Respiratory: Yes: WNL, CTA Bilaterally, Hyperresonant Gastrointestinal: Yes: WNL, Normal Bowel Sounds, Soft Renal/: Yes: WNL Cardiovascular: Yes: WNL, Regular Rate and Rhythm JVD: No Carotid Bruit: No PMI: Non-Displaced Heart Sounds: Yes: S1, S2 Murmur: Yes: Systolic Murmur, Grade 2 Musculoskeletal: Yes: WNL Extremities: Yes: WNL Edema: No Peripheral Pulses: 2+ Left Carotid, 2+ Right Carotid, 2+ Left Femoral, 2+ Right Femoral, 2+ Left Popliteal, 2+ Right Popliteal, 2+ Left Doralis Pedis, 2+ Right Dorsalis Pedis Integumentary: Yes: WNL Neurological: Yes: WNL ...Motor Strength: WNL Psychiatric: Yes: WNL - Other Data Labs, Other Data: CBC, BMP 07/10/18 09:25 07/10/18 09:25 INR, PTT INR 0.95 (0.83-1.09) 07/10/18 00:30 Troponin, BNP 07/10/18 07/10/18 00:30 00:30 Troponin I < 0.02 B-Natriuretic Peptide 58.8 Troponin, BNP 07/10/18 07/10/18 00:30 00:30 Troponin I < 0.02 B-Natriuretic Peptide 58.8 Assessment/Plan The patient is a 63-year-old obese man, with mild dementia, hypertension, now admitted with generalized weakness and elevated blood pressure. The patient looks comfortable. Denies chest pains and shortness of breath. No palpitations. There is no evidence of ischemia nor acute coronary syndrome. No CHF. The patient is in sinus rhythm. 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 There are no acute ECG changes. Would start Toprol-XL 50 mg daily. Increase clonidine to 3 times a day. Stop hydralazine. Consider Norvasc if the above measures are not sufficient. Please arrange for an echocardiogram. No need for cardiac monitoring. The patient is stable.
[2018-07-10] MEDS ORDERED: hydrALAZINE HCL 25 MG TABLET (FP) PO SCH (14:00)
--- NOTE | 2018-07-10 14:03 | ECHO ---
Name: TUNDE SUAREZOBERTO Exam:Adult Echocardiogram Study Date: 07/10/2018 07:27 AM Age: 63 yrs Reason For Study: HTN Height: 65 in Weight: 269 lb BSA: 2.2 m2 MMode/2D Measurements & Calculations IVSd: 1.3 cm Ao root diam: 3.1 cm LVIDd: 4.0 cm LA dimension: 3.0 cm LVIDs: 3.5 cm LVPWd: 1.0 cm EDV(Teich): 68.0 ml ESV(Teich): 49.4 ml Doppler Measurements & Calculations MV E max roberto: 64.0 cm/sec AI P1/2t: 459.3 msec MV A max roberto: 102.3 cm/sec MV E/A: 0.63 MV dec time: 0.13 sec AI max roberto: 211.7 cm/sec MR max roberto: 222.6 cm/sec AI max P.9 mmHg MR max P.8 mmHg AI dec slope: 135.0 cm/sec2 TR max roberto: 270.1 cm/sec Med Peak E' Roberto: 6.4 cm/sec TR max P.2 mmHg Med E/e': 10.0 Lat Peak E' Roberto: 8.8 cm/sec Lat E/e': 7.3 Procedure A complete two-dimensional transthoracic echocardiogram was performed (2D, M-mode, Doppler and color flow Doppler). Technically limited study. Left Ventricle The left ventricle is normal in size. There is mild concentric left ventricular hypertrophy. Left domitila tricular systolic function is normal. Ejection Fraction = 60-65%. Grade I diastolic dysfunction, (abnormal rel axation pattern). Ratio E/E'= 10. No regional wall motion abnormalities noted. Right Ventricle The right ventricle is normal size. The right ventricular systolic function is normal. Atria The left atrial size is normal. Right atrial size is normal. Mitral Valve The mitral valve is normal in structure and function. There is no mitral regurgitation noted. Tricuspid Valve The tricuspid valve is normal in structure and function. No tricuspid regurgitation. Aortic Valve The aortic valve is normal in structure and function. No aortic regurgitation is present. Pulmonic Valve The pulmonic valve is not well visualized. Great Vessels The aortic root is normal size. Pericardium/Pleura There is no pericardial effusion. Interpretation Summary Technically limited study The left ventricle is normal in size. There is mild concentric left ventricular hypertrophy. Left ventricular systolic function is normal. No regional wall motion abnormalities noted. Ejection Fraction = 60-65%. Grade I diastolic dysfunction, (abnormal relaxation pattern). Ratio E/E'= 10 The right ventricular systolic function is normal. The left atrial size is normal. Right atrial size is normal. No significant valvular regurgitations are seen There is no pericardial effusion. Previous study is not available for comparison Anibal Cat MD 07/10/2018 02:02 PM
[2018-07-10] MEDS: ATORVASTATIN CA 40 MG TABLET (FP) PO SCH (21:44)
[2018-07-10] MEDS: cloNIDine HCL 0.1 MG TABLET PO SCH (21:44)
[2018-07-10] MEDS: HEPARIN NA (PORCINE) 5,000 UNITS/ML 1ML VIAL SQ SCH (21:45)
[2018-07-10] MEDS ORDERED: cloNIDine HCL 0.1 MG TABLET PO SCH (22:00)
[2018-07-11] MEDS ORDERED: amLODIPine BESYLATE 5 MG TABLET (FP) PO ONE (01:50)
[2018-07-11] MEDS: cloNIDine HCL 0.1 MG TABLET PO SCH ×3 (06:07→21:26)
[2018-07-11 07:06] LABS: BASO % 0.8 % (0-2.0); EOS % 3.7 % (0-4.5); HEMOGLOBIN 15.9 GM/dL (11.7-16.9); LYMPH % 30.5 % (8-40); MCH 31.7 pg (25.7-33.7); MCHC 34.6 g/dl (32.0-35.9); MEAN CELL VOLUME 91.8 fl (80-96); MEAN PLT VOLUME 9.7 fl (7.5-11.1); MONO % 7.7 % (3.8-10.2); NEUT % 57.3 % (42.8-82.8); PLATELET COUNT 178 K/MM3 (134-434); RBC 5.02 M/mm3 (4.00-5.60); RDW 14.1 % (11.9-15.9); WHITE BLOOD COUNT 6.2 K/mm3 (4.0-10.0)
[2018-07-11 07:41] LABS: ALBUMIN 3.4 g/dl (3.4-5.0); ALK PHOS 90 U/L (45-117); ANION GAP 7 MMOL/L (8-16); BILIRUBIN,TOTAL 0.5 mg/dL (0.2-1); BLOOD UREA NITROGEN 18 mg/dL (7-18); CALCIUM 8.4 mg/dL (8.5-10.1); CHLORIDE 108 mmol/L (98-107); CHOLESTEROL 141 mg/dL (50-200); CO2 28 mmol/L (21-32); CREATININE 0.8 mg/dL (0.55-1.3); GLUCOSE,RANDOM 99 mg/dL (74-106); HDL CHOLESTEROL 42 mg/dL (40-60); POTASSIUM 3.8 mmol/L (3.5-5.1); SGOT/AST 14 U/L (15-37); SGPT/ALT 25 U/L (13-61); SODIUM 143 mmol/L (136-145); TOT PROT 6.3 g/dl (6.4-8.2); TRIGLYCERIDES 201 mg/dL (0-150)
[2018-07-11] MEDS: DONEPEZIL HCL 5 MG TABLET (FP) PO SCH (09:17)
[2018-07-11] MEDS: HEPARIN NA (PORCINE) 5,000 UNITS/ML 1ML VIAL SQ SCH ×3 (09:17→21:26)
[2018-07-11] MEDS: ASPIRIN 81 MG CHEWABLE TABLETS PO SCH ×2 (09:18→09:37)
--- NOTE | 2018-07-11 09:20 | PN ---
Progress Note, Physician - Current Medication List Current Medications: Active Medications Aspirin (Asa -) 81 mg PO DAILY [facility] Last Admin: 07/11/18 09:18 Dose: 81 mg Atorvastatin Calcium (Lipitor -) 40 mg PO HS [facility] Last Admin: 07/10/18 21:44 Dose: 40 mg Clonidine (Catapres -) 0.1 mg PO TID [facility] Last Admin: 07/11/18 06:07 Dose: 0.1 mg Donepezil HCl (Aricept -) 5 mg PO DAILY [facility] Last Admin: 07/11/18 09:17 Dose: 5 mg Heparin Sodium (Porcine) (Heparin -) 5,000 unit SQ BID [facility] Last Admin: 07/11/18 09:17 Dose: 5,000 unit Metoprolol Succinate (Toprol Xl -) 50 mg PO DAILY [facility] Last Admin: 07/11/18 09:17 Dose: 50 mg - Objective Vital Signs: Vital Signs Temperature 98.1 F 07/11/18 09:16 Pulse Rate 54 L 07/11/18 09:16 Respiratory Rate 18 07/11/18 09:16 Blood Pressure 147/96 07/11/18 09:16 O2 Sat by Pulse Oximetry (%) 98 07/10/18 16:42 Cardiovascular: Yes: Regular Rate and Rhythm Respiratory: Yes: Regular, CTA Bilaterally Gastrointestinal: Yes: Normal Bowel Sounds, Soft Labs: CBC, BMP 07/11/18 06:00 07/11/18 06:00 INR, PTT INR 0.95 (0.83-1.09) 07/10/18 00:30 Problem List - Problems (1) Hypertensive urgency, malignant Assessment/Plan: - l Orders cloNIDine HCL [Catapres -] 0.1 mg PO TID Amlodipine Besylate [Norvasc -] 5 mg PO DAILY Losartan Potassium [Cozaar -] 50 mg PO DAILY Metoprolol Succinate [Toprol Xl -] 50 mg PO DAILY Monitor bp on current meds Code(s): I16.0 - HYPERTENSIVE URGENCY (2) Dementia Assessment/Plan: on aricept Code(s): F03.90 - UNSPECIFIED DEMENTIA WITHOUT BEHAVIORAL DISTURBANCE (3) Headache Assessment/Plan: secondary to elevated BP telemetry cardiology eval ct head negative dvt ppx scds early ambulation Code(s): R51 - HEADACHE Qualifiers: Headache type: unspecified Headache chronicity pattern: unspecified pattern Intractability: not intractable Qualified Code(s): R51 - Headache
[2018-07-11] MEDS ORDERED: LOSARTAN POTASSIUM 50 MG TABLET (FP) PO SCH (10:00)
[2018-07-11] MEDS: amLODIPine BESYLATE 5 MG TABLET (FP) PO SCH (10:39)
[2018-07-11] MEDS: ATORVASTATIN CA 40 MG TABLET (FP) PO SCH (21:26)
--- NOTE | 2018-07-11 22:24 | PN ---
Progress Note, Physician Chief Complaint: Events noted Not in distress History of Present Illness: Patient was seen and examined. Awake and alert. Chart was reviewed Denies chest pain, SOB or palpitations Patient was seen by Dr. Hansen yesterday, but was switched to our service as patient is our office patient who sees Dr. Sam Callahan - Current Medication List Current Medications: Active Medications Amlodipine Besylate (Norvasc -) 5 mg PO DAILY [facility] Last Admin: 07/11/18 10:39 Dose: 5 mg Aspirin (Asa -) 81 mg PO DAILY [facility] Last Admin: 07/11/18 09:37 Dose: Not Given Atorvastatin Calcium (Lipitor -) 40 mg PO HS [facility] Last Admin: 07/11/18 21:26 Dose: 40 mg Clonidine (Catapres -) 0.1 mg PO TID [facility] Last Admin: 07/11/18 21:26 Dose: 0.1 mg Donepezil HCl (Aricept -) 5 mg PO DAILY [facility] Last Admin: 07/11/18 09:17 Dose: 5 mg Heparin Sodium (Porcine) (Heparin -) 5,000 unit SQ BID [facility] Last Admin: 07/11/18 21:26 Dose: 5,000 unit Losartan Potassium (Cozaar -) 50 mg PO DAILY [facility] Last Admin: 07/11/18 10:39 Dose: 50 mg Metoprolol Succinate (Toprol Xl -) 50 mg PO DAILY [facility] Last Admin: 07/11/18 09:17 Dose: 50 mg - Objective Vital Signs: Vital Signs Temperature 97.9 F 07/11/18 20:21 Pulse Rate 55 L 07/11/18 20:21 Respiratory Rate 18 07/11/18 20:21 Blood Pressure 155/97 07/11/18 20:21 O2 Sat by Pulse Oximetry (%) 94 L 07/11/18 20:21 Eyes: Yes: PERRL HENT: Yes: Atraumatic Neck: Yes: Supple Cardiovascular: Yes: Regular Rate and Rhythm, S1, S2 Respiratory: Yes: CTA Bilaterally Gastrointestinal: Yes: Normal Bowel Sounds, Soft. No: Tenderness Edema: No Additional Findings/Remarks: - Review of Systems Constitutional: denies: Chills, Fever Cardiovascular: denies: Chest Pain, Palpitations, Shortness of Breath Respiratory: denies: Cough, Hemoptysis, Orthopnea, PND, SOB, SOB on Exertion Gastrointestinal: denies: Abdominal Pain, Constipation, Diarrhea, Melena, Nausea , Rectal Bleeding, Vomiting Musculoskeletal: denies: Back Pain, Joint Pain Neurological: (+) Weakness, denies: Dizziness, denies: Headache, Seizure, Syncope Labs: CBC, BMP 07/11/18 06:00 07/11/18 06:00 INR, PTT INR 0.95 (0.83-1.09) 07/10/18 00:30 Problem List - Problems (1) Hypercholesterolemia Code(s): E78.00 - PURE HYPERCHOLESTEROLEMIA, UNSPECIFIED (2) Generalized weakness Code(s): R53.1 - WEAKNESS (3) Hypertensive urgency, malignant Code(s): I16.0 - HYPERTENSIVE URGENCY Assessment/Plan 1. HTN - not at goal 2. Hypercholesterolemia 3. Generalized weakness PLAN: 1. Continue Losartan 50 mg QD and uptitrate 2. Continue Amlodipine 5 mg QD and uptitrate 3. Clonidine 0.1 mg TID as tolerated 4. Currently started on Metoprolol ER 50 mg QD (patient was on Bystolic total of 20 mg daily at home) - will clarify 5. Continue Atorvastatin Further plans are to follow Anibal Cat MD
[2018-07-12] MEDS: cloNIDine HCL 0.1 MG TABLET PO SCH ×3 (05:40→21:17)
[2018-07-12] MEDS: amLODIPine BESYLATE 5 MG TABLET (FP) PO SCH (09:17)
[2018-07-12] MEDS: HEPARIN NA (PORCINE) 5,000 UNITS/ML 1ML VIAL SQ SCH ×2 (09:17→21:17)
[2018-07-12] MEDS: ASPIRIN 81 MG CHEWABLE TABLETS PO SCH (09:17)
[2018-07-12] MEDS: DONEPEZIL HCL 5 MG TABLET (FP) PO SCH (09:17)
--- NOTE | 2018-07-12 09:25 | PN ---
Progress Note, Physician History of Present Illness: BP with improved control, no longer feeling weak, denies chest pain or dyspnea. - Current Medication List Current Medications: Active Medications Amlodipine Besylate (Norvasc -) 5 mg PO DAILY [facility] Last Admin: 07/12/18 09:17 Dose: 5 mg Aspirin (Asa -) 81 mg PO DAILY [facility] Last Admin: 07/12/18 09:17 Dose: 81 mg Atorvastatin Calcium (Lipitor -) 40 mg PO HS [facility] Last Admin: 07/11/18 21:26 Dose: 40 mg Clonidine (Catapres -) 0.1 mg PO TID [facility] Last Admin: 07/12/18 05:40 Dose: 0.1 mg Donepezil HCl (Aricept -) 5 mg PO DAILY [facility] Last Admin: 07/12/18 09:17 Dose: 5 mg Heparin Sodium (Porcine) (Heparin -) 5,000 unit SQ BID [facility] Last Admin: 07/12/18 09:17 Dose: 5,000 unit Losartan Potassium (Cozaar -) 50 mg PO DAILY [facility] Last Admin: 07/11/18 10:39 Dose: 50 mg Metoprolol Succinate (Toprol Xl -) 50 mg PO DAILY [facility] Last Admin: 07/12/18 09:17 Dose: 50 mg - Objective Vital Signs: Vital Signs Temperature 97.5 F L 07/12/18 06:00 Pulse Rate 60 07/12/18 06:00 Respiratory Rate 18 07/12/18 06:00 Blood Pressure 171/112 H 07/12/18 06:00 O2 Sat by Pulse Oximetry (%) 94 L 07/11/18 21:00 Constitutional: Yes: No Distress, Calm Neck: Yes: Supple Cardiovascular: Yes: Regular Rate and Rhythm Respiratory: Yes: Regular, CTA Bilaterally Gastrointestinal: Yes: Normal Bowel Sounds, Soft, Abdomen, Obese Edema: No Labs: CBC, BMP 07/11/18 06:00 07/11/18 06:00 INR, PTT INR 0.95 (0.83-1.09) 07/10/18 00:30 - ....Imaging EKG: Report Reviewed (Tele: NSR) Problem List - Problems (1) Hypertensive urgency Code(s): I16.0 - HYPERTENSIVE URGENCY (2) Hypercholesterolemia Code(s): E78.00 - PURE HYPERCHOLESTEROLEMIA, UNSPECIFIED Assessment/Plan 1. HTN urgency resolving 2. Hypercholesterolemia 3. Generalized weakness resolved PLAN: 1. Continue Losartan 50 mg QD and uptitrate 2. Continue Amlodipine 5 mg QD and uptitrate 3. Clonidine 0.1 mg TID as tolerated 4. Switched Metoprolol ER 50 mg QD to Bystolic 10 mg daily (home regimen) 5. Continue Atorvastatin 20 qd 6. D/c planning with f/u with Dr. Callahan
--- NOTE | 2018-07-12 09:27 | DS ---
Physical Examination Vital Signs: Vital Signs Temperature 97.5 F L 07/12/18 06:00 Pulse Rate 60 07/12/18 06:00 Respiratory Rate 18 07/12/18 06:00 Blood Pressure 171/112 H 07/12/18 06:00 O2 Sat by Pulse Oximetry (%) 94 L 07/11/18 21:00 Cardiovascular: Yes: S1, S2 Respiratory: Yes: Regular, CTA Bilaterally Gastrointestinal: Yes: Normal Bowel Sounds, Soft Labs: CBC, BMP 07/11/18 06:00 07/11/18 06:00 Discharge Summary Reason For Visit: MALIGNANT HYPERTENSIVE URGENCY Current Active Problems Dementia (Acute) Generalized weakness (Acute) Hypercholesterolemia (Acute) Hypertensive urgency, malignant (Acute) Hospital Course: - Problems (1) Hypertensive urgency, malignant Assessment/Plan: - l Orders cloNIDine HCL [Catapres -] 0.1 mg PO TID Amlodipine Besylate [Norvasc -] 5 mg PO DAILY Losartan Potassium [Cozaar -] 50 mg PO DAILY --to 100 qd Metoprolol Succinate [Toprol Xl -] 50 mg PO DAILY Monitor bp on current meds Code(s): I16.0 - HYPERTENSIVE URGENCY (2) Dementia Assessment/Plan: on aricept Code(s): F03.90 - UNSPECIFIED DEMENTIA WITHOUT BEHAVIORAL DISTURBANCE (3) Headache Assessment/Plan: secondary to elevated BP telemetry cardiology eval ct head negative dvt ppx scds early ambulation Code(s): R51 - HEADACHE Qualifiers: Headache type: unspecified Headache chronicity pattern: unspecified pattern Intractability: not intractable Qualified Code(s): R51 - Headache - Instructions - Home Medications Comprehensive Discharge Medication List: Ambulatory Orders Aspirin [[place] Aspirin] 81 mg PO DAILY 06/17/15 Atorvastatin Ca [Lipitor] 40 mg PO HS 07/10/18 Amlodipine Besylate [Norvasc -] 5 mg PO DAILY #30 tablet 07/12/18 Losartan Potassium [Cozaar -] 50 mg PO BID #60 tablet 07/12/18 Metoprolol Succinate [Toprol XL -] 50 mg PO DAILY #30 tab.sr.24h 07/12/18 cloNIDine HCL [Catapres -] 0.1 mg PO TID #90 tablet 07/12/18
[2018-07-12 11:15] VITALS: BMI 41.9
[2018-07-12] MEDS: LOSARTAN POTASSIUM 50 MG TABLET (FP) PO SCH ×2 (11:40→21:17)
[2018-07-12] MEDS: NEBIVOLOL 10 MG TABLET (FP) PO SCH (11:40)
[2018-07-12] MEDS: ATORVASTATIN CA 40 MG TABLET (FP) PO SCH (21:17)
[2018-07-13] MEDS: cloNIDine HCL 0.1 MG TABLET PO SCH ×2 (05:36→15:02)
[2018-07-13] MEDS: NEBIVOLOL 10 MG TABLET (FP) PO SCH (09:16)
[2018-07-13] MEDS: LOSARTAN POTASSIUM 50 MG TABLET (FP) PO SCH (09:17)
[2018-07-13] MEDS: ASPIRIN 81 MG CHEWABLE TABLETS PO SCH (09:17)
[2018-07-13] MEDS: amLODIPine BESYLATE 5 MG TABLET (FP) PO SCH (09:17)
[2018-07-13] MEDS: HEPARIN NA (PORCINE) 5,000 UNITS/ML 1ML VIAL SQ SCH (09:17)
[2018-07-13] MEDS: DONEPEZIL HCL 5 MG TABLET (FP) PO SCH (09:17)
--- NOTE | 2018-07-13 11:20 | PN ---
Progress Note, Physician History of Present Illness: BP with improved control, no longer feeling weak, denies chest pain or dyspnea. - Current Medication List Current Medications: Active Medications Amlodipine Besylate (Norvasc -) 5 mg PO DAILY [facility] Last Admin: 07/13/18 09:17 Dose: 5 mg Aspirin (Asa -) 81 mg PO DAILY [facility] Last Admin: 07/13/18 09:17 Dose: 81 mg Atorvastatin Calcium (Lipitor -) 40 mg PO HS [facility] Last Admin: 07/12/18 21:17 Dose: 40 mg Clonidine (Catapres -) 0.1 mg PO TID [facility] Last Admin: 07/13/18 05:36 Dose: 0.1 mg Donepezil HCl (Aricept -) 5 mg PO DAILY [facility] Last Admin: 07/13/18 09:17 Dose: 5 mg Heparin Sodium (Porcine) (Heparin -) 5,000 unit SQ BID [facility] Last Admin: 07/13/18 09:17 Dose: 5,000 unit Losartan Potassium (Cozaar -) 50 mg PO BID [facility] Last Admin: 07/13/18 09:17 Dose: 50 mg Nebivolol (Bystolic -) 10 mg PO DAILY [facility] Last Admin: 07/13/18 09:16 Dose: 10 mg - Objective Vital Signs: Vital Signs Temperature 98 F 07/13/18 09:21 Pulse Rate 65 07/13/18 09:21 Respiratory Rate 20 07/13/18 09:21 Blood Pressure 134/83 07/13/18 09:21 O2 Sat by Pulse Oximetry (%) 95 07/13/18 09:21 Constitutional: Yes: No Distress, Calm Neck: Yes: Supple Cardiovascular: Yes: Regular Rate and Rhythm Respiratory: Yes: Regular, CTA Bilaterally Gastrointestinal: Yes: Normal Bowel Sounds, Soft Edema: No Labs: CBC, BMP 07/11/18 06:00 07/11/18 06:00 INR, PTT INR 0.95 (0.83-1.09) 07/10/18 00:30 - ....Imaging EKG: Report Reviewed Problem List - Problems (1) Hypertensive urgency Code(s): I16.0 - HYPERTENSIVE URGENCY (2) Hypercholesterolemia Code(s): E78.00 - PURE HYPERCHOLESTEROLEMIA, UNSPECIFIED Assessment/Plan 1. HTN urgency resolved 2. Hypercholesterolemia 3. Generalized weakness resolved PLAN: 1. Continue Losartan 50 mg BID 2. Continue Amlodipine 5 mg QD and uptitrate 3. Clonidine 0.1 mg TID as tolerated 4. Continue Bystolic 10 mg daily (home regimen) 5. Continue Atorvastatin 40 qd and ASA 81 qd 6. D/c planning with f/u with Dr. Callahan
[2018-07-13 14:17] VITALS: TEMP 98.3
--- NOTE | 2018-07-13 14:40 | PN ---
Progress Note, Physician Chief Complaint: patient seen and examined - Current Medication List Current Medications: Active Medications Amlodipine Besylate (Norvasc -) 5 mg PO DAILY [facility] Last Admin: 07/13/18 09:17 Dose: 5 mg Aspirin (Asa -) 81 mg PO DAILY [facility] Last Admin: 07/13/18 09:17 Dose: 81 mg Atorvastatin Calcium (Lipitor -) 40 mg PO HS [facility] Last Admin: 07/12/18 21:17 Dose: 40 mg Clonidine (Catapres -) 0.1 mg PO TID [facility] Last Admin: 07/13/18 05:36 Dose: 0.1 mg Donepezil HCl (Aricept -) 5 mg PO DAILY [facility] Last Admin: 07/13/18 09:17 Dose: 5 mg Heparin Sodium (Porcine) (Heparin -) 5,000 unit SQ BID [facility] Last Admin: 07/13/18 09:17 Dose: 5,000 unit Losartan Potassium (Cozaar -) 50 mg PO BID [facility] Last Admin: 07/13/18 09:17 Dose: 50 mg Nebivolol (Bystolic -) 10 mg PO DAILY [facility] Last Admin: 07/13/18 09:16 Dose: 10 mg - Objective Vital Signs: Vital Signs Temperature 98.3 F 07/13/18 14:16 Pulse Rate 60 07/13/18 14:16 Respiratory Rate 16 07/13/18 14:16 Blood Pressure 124/74 07/13/18 14:16 O2 Sat by Pulse Oximetry (%) 95 07/13/18 09:21 Constitutional: Yes: Calm Cardiovascular: Yes: Regular Rate and Rhythm, S1, S2 Respiratory: Yes: CTA Bilaterally Gastrointestinal: Yes: Normal Bowel Sounds, Soft Neurological: Yes: Alert Labs: CBC, BMP 07/11/18 06:00 07/11/18 06:00 INR, PTT INR 0.95 (0.83-1.09) 07/10/18 00:30 Problem List - Problems (1) Dementia Assessment/Plan: aricept 5mg Code(s): F03.90 - UNSPECIFIED DEMENTIA WITHOUT BEHAVIORAL DISTURBANCE (2) Headache Assessment/Plan: secondary to elevated BP now better controlled BP headaches resolved telemetry continue cloniidine,losartan hydralazine stop bystolic ct head negative dvt ppx scds early ambulation Code(s): R51 - HEADACHE Qualifiers: Headache type: unspecified Headache chronicity pattern: unspecified pattern Intractability: not intractable Qualified Code(s): R51 - Headache (3) Hypertension Assessment/Plan: clonidine 0.1mg bid hydralazine 25mg tid bystolic 20mg telemetry echo Qualifiers: Hypertension type: unspecified Qualified Code(s): I10 - Essential (primary ) hypertension
[2018-07-13 15:06] VITALS: BP 138/94; PULSE 56
== END 2018-07-13 15:31 | disposition home or self-care (01) | DRG 305 ==
LOC: JER 23:39 → JERBED 07-10 03:02 → J4S 07-10 14:25
PROVIDERS: ADMIT Family Medicine; ATTEND Family Medicine
DX: I16.0 Hypertensive urgency (principal); I10 Essential (primary) hypertension; F03.90 Unspecified dementia, unspecified severity, without behavioral disturbance, psychotic disturbance, mood disturbance, and anxiety; Z87.891 Personal history of nicotine dependence; E78.00 Pure hypercholesterolemia, unspecified; R53.1 Weakness
CPT/HCPCS: 36415; 70450-TC; 71046-TC-FY; 80048; 80053; 80061; 81003; 81015; 82550; 83036; 83721; 83735; 83880; 84100; 84484; 85025; 85610; 86850; 86900; 86901; 93005; 93010; 93306-TC; 97116-GP; 97161-GP; 99283-25; J0735; J1644

== ENCOUNTER 2019-01-02 09:06 | Inpatient (IN) | payer OTHER ==
[2018-12-25 12:23] VITALS: BMI 40.8
--- NOTE | 2019-01-02 08:02 | HP ---
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: Yes: Dementia (mild) Cardiovascular: Yes: HTN - Current Medications Current Medications: Home Medications Medication Instructions Recorded Aspirin [[place] Aspirin] 81 mg PO DAILY 06/17/15 Atorvastatin Ca [Lipitor] 20 mg PO HS 07/10/18 Amlodipine Besylate [Norvasc -] 5 mg PO DAILY #30 tablet 07/12/18 cloNIDine HCL [Catapres -] 0.1 mg PO TID #90 tablet 07/12/18 Azilsartan Medoxomil [Edarbi] 80 mg PO DAILY 12/25/18 Hydrochlorothiazide 25 mg PO DAILY 12/25/18 Nebivolol HCl [Bystolic] 20 mg PO BID 12/25/18 Tamsulosin HCl 0.4 mg PO HS 12/25/18 Satellite Physical Exam - Physical Examination General Appearance: Well Nourished, Well Developed, Alert & Oriented x3 ENT: Clear Lung: Normal air movement Heart: Regular rate & rhythm Extremities: Other (right knee- + swelling, + ttp, decr rom ,nvi, xrays show grade 4 tricompartmental djd) Neurological: Intact, Alert, Oriented Satellite Impression/Plan - Impression/Plan Impression: right knee djd Operative Procedure: right juan tkr Date to be Performed: 01/02/19
[2019-01-02] MEDS ORDERED: GABAPENTIN 300 MG CAPSULE (FP) PO ONE (09:20)
[2019-01-02] MEDS ORDERED: TRANEXAMIC ACID 1000 MG/10 ML VIAL IVPUSH ONE (09:20)
[2019-01-02] MEDS ORDERED: CELECOXIB 200 MG CAPSULE PO ONE (09:20)
[2019-01-02] MEDS ORDERED: CEFAZOLIN 2 GM in DEXTROSE 5%-WATER - 50 ML IVPB ONE (09:20)
[2019-01-02] MEDS ORDERED: oxyCODONE HCL 10 MG SUSTAINED ACTING TABLET PO ONE (09:20)
[2019-01-02] MEDS ORDERED: MIDAZOLAM HCL 2 MG/2 ML SINGLE DOSE VIAL ONE (09:30)
[2019-01-02] MEDS ORDERED: BUPIVACAINE LIPOSOME/PF (EXPAREL) 266 MG/20 ML VIAL ONE (09:31)
[2019-01-02] MEDS ORDERED: SODIUM CHLORIDE 0.9% P/F 10 ML VIAL IJ ONE ×2 (09:31→10:57)
[2019-01-02] MEDS ORDERED: ceFAZolin SODIUM 1 GM VIAL ONE ×3 (10:18→13:04)
[2019-01-02] MEDS ORDERED: VANCOMYCIN 1,000 MG VIAL (RESTRICTED TO ID ONLY) ONE (10:18)
[2019-01-02] MEDS ORDERED: ONDANSETRON 4 MG/2 ML VIAL ONE (11:00)
[2019-01-02] MEDS ORDERED: PROPOFOL 20 ML ONE (11:01)
[2019-01-02] MEDS ORDERED: ePHEDrine SULFATE 50 MG/1 ML AMPULE ONE (13:04)
[2019-01-02] MEDS ORDERED: TRANEXAMIC ACID 1000 MG/10 ML VIAL ONE (13:04)
[2019-01-02] MEDS ORDERED: oxyCODONE HCL 5 MG TABLET PO PRN (13:16)
[2019-01-02] MEDS ORDERED: ONDANSETRON 4 MG/2 ML VIAL IVPUSH PRN ×2 (13:16→14:48)
[2019-01-02] MEDS ORDERED: LACTATED RINGERS SOLUTION 1,000 ML IV SCH ×2 (13:30→15:00)
[2019-01-02] MEDS ORDERED: ACETAMINOPHEN 1000 MG/100 ML VIAL (NON FORMULARY) IVPB ONE (14:00)
[2019-01-02] MEDS ORDERED: ACETAMINOPHEN INJECTION 100 ML IVPB ONE (14:36)
[2019-01-02] MEDS ORDERED: MAG HYDROX/AL HYDROX/SIMETH 30 ML UNIT-DOSE CUP PO PRN (14:48)
[2019-01-02] MEDS ORDERED: MAGNESIUM HYDROX 2400MG/30ML ORAL SUSPENSION 30 ML CUP PO PRN (14:48)
--- NOTE | 2019-01-02 14:50 | OP ---
Operative Note - Note: Operative Date: 01/02/19 ([place]) Pre-Operative Diagnosis: right knee djd Operation: right juan tkr Post-Operative Diagnosis: Same as Pre-op Surgeon: Valnetino Barrios Box Coverer Hand: Roberto Kang Anesthesiologist/CAFE LEAD: Blair Sanches Anesthesia: Spinal, Local Specimens Removed: bone fragments Estimated Blood Loss (mls): 200 Operative Report Dictated: Yes
--- NOTE | 2019-01-02 15:48 | OP ---
DATE OF OPERATION: 01/02/2019 PREOPERATIVE DIAGNOSIS: Degenerative joint disease, right knee. POSTOPERATIVE DIAGNOSIS: Degenerative joint disease, right knee. PROCEDURE: Right total knee replacement with robotic-assisted navigation (MAKOplasty). SURGICAL ATTENDING: Adolfo Barrios MD FARM CONTRACTOR: TJ Luevano ANESTHESIA: Regional and spinal CLOSURE: A Press-Fit Triathlon knee system with a 4 femur, 5 tibia, 9 polyethylene, a 35 patella; No. 1 Vicryl, fascia; 0 and 2-0 for subcutaneous; and 3-0 Monocryl subcuticular with skin glue for the skin; 4-0 undyed Vicryl for pin sites. ESTIMATED BLOOD LOSS: Approximately 100 mL. COMPLICATIONS: None. CONDITION: To recovery room in stable condition. DESCRIPTION OF OPERATIVE PROCEDURE: Patient was taken to the operating room on January 02, 2019. Regional and spinal anesthesia was administered by the anesthesiologist. IV Kefzol was administered prophylactically prior to the case as well as TXA. The right lower extremity was prepped and draped in the usual sterile fashion. The midline 10- to 12-cm longitudinal incision was made. Hemostasis was achieved with Bovie cautery. Sharp dissection was carried down to the extensor mechanism which was perform the procedure. Medial parapatellar arthrotomy was then performed, leaving a cuff of tissue for later closure. The patella was inverted and the knee was flexed up. The fat pad was excised. Subperiosteal dissection was done on the anteromedial proximal tibia until the knee was able to be brought forward. This was facilitated by taking the ACL, PCL and medial and lateral menisci. Checkpoints were placed in both the femur and in the tibia. Two parallel threaded pins were drilled superior to the knee joint through the already made incision from anterior to posterior just going through the anterior cortex but just engaging but not going through the posterior cortex. Two threaded pins were drilled through 2 small stab incisions in parallel fashion 1 handbreadth below the tibial tubercle through the anterior cortex of the tibia and engaging but not going through the posterior cortex. Both sets of pins were attached to navigation arrays for the JARRETT system. The knee was then registered with the navigation system with center of rotation of the hip, medial and lateral malleoli and multiple sites both on the tibia and on the femur. Confirmation of excellent registration was confirmed by "popping the bubbles." At this time, the knee was thoroughly inspected to remove all osteophytes around the knee. The knee was then tensioned in varus/valgus at both full extension and at 90 degrees of flexion to ascertain our gaps. The virtual position of the components was optimized to ensure equal gaps throughout the range of motion. Once this was performed, the robot was brought into the field, was registered. The bone was cut as per the specifications on both the tibia and on the femur. The box cuts were then made as well. Excellent trial stability was obtained on the femur. The tibial baseplate was allowed to "find itself" and then was clipped into place. Confirmation of excellent external rotation of that component was confirmed by the navigation device as well.The patella was calibered for thickness and cut at the appropriate level. The appropriate lollipop was used to drill 3 holes in the patella and a trial asymmetric patellar button was applied. The knee was taken through a range of motion and found to have excellent stability from full extension to full flexion with excellent tracking of the patella. The trial components were then removed. The lug holes were drilled in the femur. The cementless keel was punched in the tibia. The real Press-Fit components were malleted into place, first with the tibia and then with the femur, and then the patella was crimped into place as well. The real polyethylene liner was then clipped into place. Range of motion, stability and tracking were as described earlier. The knee was thoroughly irrigated with copious amounts of irrigation. Vancomycin powder was placed inside the joint. The medial parapatellar arthrotomy was then closed using No. 1 Vicryl interrupted suture. Post closure of the arthrotomy, the knee was taken through a range of motion and found to have no undue tension on the repair. The subcutaneous was then pulse antibiotic irrigated, closed with 0 and 2-0 Vicryl and 3-0 Monocryl subcuticular with skin glue for the skin. Prior to closure, the checkpoints were removed as were the threaded pins. The tibial pin sites were closed with 4-0 undyed Vicryl. A sterile pressure Aquacel dressing was applied. No tourniquet was used during the case. The total blood loss was approximately 100 mL. No complication. Patient was transferred to recovery in stable condition. ADOLFO BARRIOS M.D. [id number]
[2019-01-02] MEDS: oxyCODONE HCL 5 MG TABLET PO PRN (16:32)
[2019-01-02] MEDS: CEFAZOLIN 2 GM/D5W 2 GM/50 ML ML IVPB SCH (20:14)
[2019-01-02] MEDS: TAMSULOSIN HCL 0.4 MG CAP PO SCH (21:29)
[2019-01-02] MEDS: ATORVASTATIN CA 20 MG TABLET (FP) PO SCH (21:29)
[2019-01-02] MEDS: NEBIVOLOL 10 MG TABLET (FP) PO SCH (21:29)
[2019-01-02] MEDS: SENNOSIDES/DOCUSATE COMBO (SENNA PLUS) TABLET (UD) PO SCH (21:29)
[2019-01-02] MEDS: oxyCODONE HCL 10 MG SUSTAINED ACTING TABLET PO SCH (21:29)
[2019-01-02] MEDS: cloNIDine HCL 0.1 MG TABLET PO SCH (21:29)
[2019-01-03] MEDS: CEFAZOLIN 2 GM/D5W 2 GM/50 ML ML IVPB SCH (05:42)
[2019-01-03] MEDS: cloNIDine HCL 0.1 MG TABLET PO SCH ×3 (05:42→21:52)
[2019-01-03 07:46] LABS: HEMATOCRIT 43.7 % (35.4-49); HEMOGLOBIN 14.4 GM/dl (11.7-16.9); MCH 31.4 pg (25.7-33.7); MEAN CELL VOLUME 95.2 fl (80-96); MEAN PLT VOLUME 10.2 fl (7.5-11.1); PLATELET COUNT 201 K/MM3 (134-434); RBC 4.59 M/mm3 (4.00-5.60); WHITE BLOOD COUNT 8.4 K/mm3 (4.0-10.8)
--- NOTE | 2019-01-03 08:02 | CONSULT ---
Consult - History of Present Illness History of Present Illness: s/p amko of rt knee c/o knee pain no cp or sob - Past Medical History [employer]: Yes: Dementia (mild) Cardio/Vascular: Yes: HTN, Hyperlipdemia Renal/: Yes: BPH - Past Surgical History Past Surgical History: Yes: Appendectomy - Alcohol/Substance Use Hx Alcohol Use: Yes (occasional) History of Substance Use: reports: None - Smoking History Smoking history: Former smoker Have you smoked in the past 12 months: No If you are a former smoker, when did you quit?: 22 YEARS AGO - Social History ADL: Independent History of Recent Travel: No Home Medications - Allergies Allergies/Adverse Reactions: Allergies Allergy/AdvReac Type Severity Reaction Status Date / Time No Known Drug Allergies Allergy Verified 01/02/19 09:41 - Home Medications Home Medications: Ambulatory Orders Aspirin [[place] Aspirin] 81 mg PO DAILY 06/17/15 Atorvastatin Ca [Lipitor] 20 mg PO HS 07/10/18 Amlodipine Besylate [Norvasc -] 5 mg PO DAILY #30 tablet 07/12/18 cloNIDine HCL [Catapres -] 0.1 mg PO TID #90 tablet 07/12/18 Azilsartan Medoxomil [Edarbi] 80 mg PO DAILY 12/25/18 Hydrochlorothiazide 25 mg PO DAILY 12/25/18 Nebivolol HCl [Bystolic] 20 mg PO BID 12/25/18 Tamsulosin HCl 0.4 mg PO HS 12/25/18 Aspirin [ASA -] 325 mg PO DAILY@0800 tablet 01/02/19 Oxycodone HCl/Acetaminophen [Percocet 5-325 mg Tablet -] 1 - 2 tab PO Q6H #50 tab MDD 8 01/02/19 Family Disease History - Family Disease History Family Disease History: Heart Disease: Mother (HTN), CA: Brother (Liver ) Review of Systems - Review of Systems Cardiovascular: denies: Chest Pain Respiratory: reports: No Symptoms Gastrointestinal: denies: Abdominal Pain Genitourinary: reports: No Symptoms Musculoskeletal: reports: Joint Pain Physical Exam Vital Signs: Vital Signs Temperature 99.3 F 01/03/19 05:00 Pulse Rate 80 01/03/19 05:00 Respiratory Rate 17 01/03/19 05:00 Blood Pressure 158/90 01/03/19 05:00 O2 Sat by Pulse Oximetry (%) 93 L 01/03/19 05:00 Cardiovascular: Yes: Regular Rate and Rhythm Respiratory: Yes: Regular, CTA Bilaterally Gastrointestinal: Yes: Normal Bowel Sounds, Soft. No: Tenderness Musculoskeletal: Yes: Joint Stiffness, Joint Swelling Labs: CBC, BMP 01/03/19 06:53 Problem List - Problems (1) Osteoarthritis Assessment/Plan: s/p juan of rt knee per ortho Code(s): M19.90 - UNSPECIFIED OSTEOARTHRITIS, UNSPECIFIED SITE (2) Hypercholesterolemia Assessment/Plan: on lipitor Code(s): E78.00 - PURE HYPERCHOLESTEROLEMIA, UNSPECIFIED (3) Hypertension Assessment/Plan: same meds monitor Vital Signs Period Temp Pulse Resp BP Sys/Butts Pulse Ox Last 24 Hr 97.5 F-99.3 F 51-80 14-18 140-163/79-96 93-98 Code(s): I10 - ESSENTIAL (PRIMARY) HYPERTENSION Qualifiers: Hypertension type: unspecified Qualified Code(s): I10 - Essential (primary ) hypertension
[2019-01-03] MEDS: ASPIRIN 325 MG TABLET PO SCH (08:18)
--- NOTE | 2019-01-03 08:54 | PN ---
Progress Note (short form) - Note Progress Note: AVSS COMFORTABLE BANDAGES DRY AND INTACT CALF SOFT AND NT NVI + STRAIGHT LEG RAISE ABILITY AROM 0-60 IMP: DOING WELL PLAN: IV ABX X 24 HORS, PT, DC TO HOME TOMORROW
[2019-01-03] MEDS: MULTIVITAMINS (DAILY MVI) TABLET (FP) PO SCH (09:19)
[2019-01-03] MEDS: amLODIPine BESYLATE 5 MG TABLET (FP) PO SCH (09:19)
[2019-01-03] MEDS: PANTOPRAZOLE 40 MG TABLET (FP) PO SCH (09:19)
[2019-01-03] MEDS: HYDROCHLOROTHIAZIDE 25 MG TABLET (FP) PO SCH (09:19)
[2019-01-03] MEDS: SENNOSIDES/DOCUSATE COMBO (SENNA PLUS) TABLET (UD) PO SCH ×2 (09:20→21:52)
[2019-01-03] MEDS: oxyCODONE HCL 10 MG SUSTAINED ACTING TABLET PO SCH ×2 (09:20→21:53)
[2019-01-03] MEDS: NEBIVOLOL 10 MG TABLET (FP) PO SCH ×2 (09:20→21:52)
--- NOTE | 2019-01-03 09:22 | PN ---
Progress Note (short form) - Note Progress Note: ANESTHESIA POSTOP 63 YO MALE POD#1 S/P TKA, SPINAL ANESTHESIA AND PNB Patient resting in chair. Pain adequately controlled. No distress. Tolerating PO. VSS, Afebrile Continue current care. Encouraged PT and IS. No anesthetic complications
[2019-01-03] MEDS ORDERED: PATIENT'S OWN MEDICATION (NON-FORMULARY) (Azilsartan Medoxomil [Edarbi] 80 MG) PO SCH (10:00)
[2019-01-03] MEDS: oxyCODONE HCL 5 MG TABLET PO PRN (20:53)
[2019-01-03] MEDS: TAMSULOSIN HCL 0.4 MG CAP PO SCH (21:52)
[2019-01-03] MEDS: ATORVASTATIN CA 20 MG TABLET (FP) PO SCH (21:53)
[2019-01-04] MEDS: ACETAMINOPHEN 325 MG TABLET (FP) PO PRN ×2 (01:20→11:54)
[2019-01-04] MEDS: cloNIDine HCL 0.1 MG TABLET PO SCH (06:52)
[2019-01-04] MEDS: oxyCODONE HCL 5 MG TABLET PO PRN (06:53)
[2019-01-04 07:26] LABS: HEMATOCRIT 39.7 % (35.4-49); HEMOGLOBIN 13.1 GM/dl (11.7-16.9); MCH 30.7 pg (25.7-33.7); MEAN PLT VOLUME 9.7 fl (7.5-11.1); PLATELET COUNT 184 K/MM3 (134-434); RBC 4.27 M/mm3 (4.00-5.60); RDW 12.7 % (11.9-15.9); WHITE BLOOD COUNT 11.4 K/mm3 (4.0-10.8)
--- NOTE | 2019-01-04 07:35 | PN ---
Progress Note, Physician - Current Medication List Current Medications: Active Medications Acetaminophen (Tylenol -) 650 mg PO Q6H PRN PRN Reason: PAIN OR FEVER Last Admin: 01/04/19 01:20 Dose: 650 mg Al Hydroxide/Mg Hydroxide (Mylanta Oral Suspension -) 30 ml PO Q4H PRN PRN Reason: DYSPEPSIA Amlodipine Besylate (Norvasc -) 5 mg PO DAILY [facility] Last Admin: 01/03/19 09:19 Dose: 5 mg Aspirin (Asa -) 325 mg PO DAILY@0800 [facility] Last Admin: 01/03/19 08:18 Dose: 325 mg Atorvastatin Calcium (Lipitor -) 20 mg PO HS [facility] Last Admin: 01/03/19 21:53 Dose: 20 mg Clonidine (Catapres -) 0.1 mg PO TID [facility] Last Admin: 01/04/19 06:52 Dose: 0.1 mg Fentanyl (Sublimaze Injection -) 50 mcg IVPUSH [id number] PRN PRN Reason: PAIN-PACU ORDER X 4 DOSES ONLY Hydrochlorothiazide (Hctz -) 25 mg PO DAILY [facility] Last Admin: 01/03/19 09:19 Dose: 25 mg Lactated Ringer's (Lactated Ringers Solution) 1,000 mls @ 75 mls/hr IV ASDIR [facility] Magnesium Hydroxide (Milk Of Magnesia -) 30 ml PO PRN PRN PRN Reason: CONSTIPATION Multivitamins/Minerals/Vitamin C (Tab-A-Vit -) 1 tab PO DAILY [facility] Last Admin: 01/03/19 09:19 Dose: 1 tab Nebivolol (Bystolic -) 20 mg PO BID [facility] Last Admin: 01/03/19 21:52 Dose: 20 mg Non-Formulary Medication (Azilsartan Medoxomil [Edarbi]) 80 mg PO DAILY [facility] Ondansetron HCl (Zofran Injection) 4 mg IVPUSH Q6H PRN PRN Reason: NAUSEA Oxycodone HCl (Roxicodone -) 10 mg PO Q3H PRN PRN Reason: PAIN LEVEL 6-10 Last Admin: 01/04/19 06:53 Dose: 10 mg Oxycodone HCl (Roxicodone -) 5 mg PO Q3H PRN PRN Reason: PAIN LEVEL 1-5 Oxycodone HCl (Oxycontin -) 10 mg PO BID [facility] Stop: 01/05/19 13:17 Last Admin: 01/03/19 21:53 Dose: 10 mg Pantoprazole Sodium (Protonix -) 40 mg PO DAILY [facility] Last Admin: 01/03/19 09:19 Dose: 40 mg Senna/Docusate Sodium (Pericolace -) 2 tablet PO BID [facility] Last Admin: 01/03/19 21:52 Dose: 2 tablet Tamsulosin HCl (Flomax -) 0.4 mg PO [facility] Last Admin: 01/03/19 21:52 Dose: 0.4 mg - Objective Vital Signs: Vital Signs Temperature 98.2 F 01/04/19 06:00 Pulse Rate 75 01/04/19 06:00 Respiratory Rate 18 01/04/19 06:00 Blood Pressure 124/65 01/04/19 06:00 O2 Sat by Pulse Oximetry (%) 97 01/04/19 06:00 Cardiovascular: Yes: Regular Rate and Rhythm Respiratory: Yes: Regular, CTA Bilaterally Gastrointestinal: Yes: Normal Bowel Sounds, Soft Labs: CBC, BMP 01/04/19 07:15 Problem List - Problems (1) Osteoarthritis Assessment/Plan: s/p juan of rt knee per ortho Code(s): M19.90 - UNSPECIFIED OSTEOARTHRITIS, UNSPECIFIED SITE (2) Hypercholesterolemia Assessment/Plan: on lipitor Code(s): E78.00 - PURE HYPERCHOLESTEROLEMIA, UNSPECIFIED (3) Hypertension Assessment/Plan: same meds monitor Vital Signs Period Temp Pulse Resp BP Sys/Butts Pulse Ox Last 24 Hr 97.5 F-99.3 F 51-80 14-18 140-163/79-96 93-98 Code(s): I10 - ESSENTIAL (PRIMARY) HYPERTENSION Qualifiers: Hypertension type: unspecified Qualified Code(s): I10 - Essential (primary ) hypertension
--- NOTE | 2019-01-04 08:15 | PN ---
Progress Note (short form) - Note Progress Note: AVSS COMFORTABLE BANDAGES DRY AND INTACT CALF SOFT AND NT NVI AROM 0-75 LABS=WNL IMP: DOING WELL PLAN: DC TO HOME TODAY WITH PT, F/U IN MY OFFICE X 10 DAYS
--- NOTE | 2019-01-04 08:25 | DS ---
Physical Examination Vital Signs: Vital Signs Temperature 98.2 F 01/04/19 06:00 Pulse Rate 75 01/04/19 06:00 Respiratory Rate 18 01/04/19 06:00 Blood Pressure 124/65 01/04/19 06:00 O2 Sat by Pulse Oximetry (%) 97 01/04/19 06:00 Labs: CBC, BMP 01/04/19 07:15 Discharge Summary Reason For Visit: OSTEOARTHRITIS Current Active Problems Osteoarthritis (Acute) Condition: Good - Instructions Diet, Activity, Other Instructions: Post-op Instructions-Total Knee Replacement Call the office for a follow-up appointment in 1 week - [phone] Aspirin 325mg daily for 6 weeks. Pain medication was sent into your pharmacy. Apply Graduated Compression Stockings (TEDs) to both lower extremities- remove daily for hygiene ONLY Apply Sequential Compression Device (SCDs) to both Lower extremities remove for PT and hygiene ONLY Apply cold packs to affected area for 15 minutes every 2 hours. Physical Therapist will come to your home for the first 5 days. You will be set up with outpatient PT at your first post-operative visit. Patient may ambulate as tolerated-encourage self care (at least every 2-3 hours while awake) with walker or cane Maintain Aquacel (waterproof) dressing to operative wound (will be removed by surgeon at first office visit) Shower with Aquacel dressing in place-if Aquacel integrity compromised, remove and apply dry sterile dressing and notify Orthopedist. DO NOT SHOWER unless Orthopedists approves without Aquacel dressing CONTACT THE OFFICE FOR ANY CHANGE IN YOUR CONDITION (for example-fever greater than 102 degrees, excessive bleeding from operative site, purulent drainage, severe swelling or pain) GO TO THE EMERGENCY ROOM IF THERE IS A MEDICAL EMERGENCY Knee Precautions: * Keep a rolled towel under affected heel while in bed or chair (to keep knee in extension) * Keep affected leg elevated except during mealtimes * DO NOT PLACE PILLOW UNDER AFFECTED KNEE * If you have any questions, please do not hesitate to call the office - . Referrals: Valentino Barrios MD [Staff Physician] - Disposition: VNS/HOME HEALTH CARE - Home Medications Comprehensive Discharge Medication List: Ambulatory Orders Aspirin [[place] Aspirin] 81 mg PO DAILY 06/17/15 Atorvastatin Ca [Lipitor] 20 mg PO HS 07/10/18 Amlodipine Besylate [Norvasc -] 5 mg PO DAILY #30 tablet 07/12/18 cloNIDine HCL [Catapres -] 0.1 mg PO TID #90 tablet 07/12/18 Azilsartan Medoxomil [Edarbi] 80 mg PO DAILY 12/25/18 Hydrochlorothiazide 25 mg PO DAILY 12/25/18 Nebivolol HCl [Bystolic] 20 mg PO BID 12/25/18 Tamsulosin HCl 0.4 mg PO HS 12/25/18 Aspirin [ASA -] 325 mg PO DAILY@0800 tablet 01/02/19 Oxycodone HCl/Acetaminophen [Percocet 5-325 mg Tablet -] 1 - 2 tab PO Q6H #50 tab MDD 8 01/02/19
[2019-01-04] MEDS: ASPIRIN 325 MG TABLET PO SCH (08:30)
[2019-01-04] MEDS: NEBIVOLOL 10 MG TABLET (FP) PO SCH (10:27)
[2019-01-04] MEDS: SENNOSIDES/DOCUSATE COMBO (SENNA PLUS) TABLET (UD) PO SCH (10:28)
[2019-01-04] MEDS: amLODIPine BESYLATE 5 MG TABLET (FP) PO SCH (10:28)
[2019-01-04] MEDS: MULTIVITAMINS (DAILY MVI) TABLET (FP) PO SCH (10:29)
[2019-01-04] MEDS: oxyCODONE HCL 10 MG SUSTAINED ACTING TABLET PO SCH (10:29)
[2019-01-04] MEDS: HYDROCHLOROTHIAZIDE 25 MG TABLET (FP) PO SCH (10:30)
[2019-01-04] MEDS: PANTOPRAZOLE 40 MG TABLET (FP) PO SCH (10:30)
[2019-01-04 14:31] VITALS: BP 100/58; PULSE 64; TEMP 97.7
--- NOTE | 2019-01-04 16:13 | PATH ---
Surgical Pathology Report Patient Name: YOLIS SUAREZ Med. Rec. #: [id number] /Age/Gender: 1955 (Age: 63) / M Account: [id number] Location: [facility] MED-SURG Taken: 01/02/2019 Received: 01/02/2019 Reported: 01/04/2019 Physicians: Valentino Barrios M.D. Specimen(s) Received RIGHT KNEE BONES Clinical History Right knee osteoarthritis Final Diagnosis BONE, KNEE, RIGHT, TOTAL KNEE REPLACEMENT MAKOPLASTY: BONE WITH DEGENERATIVE JOINT DISEASE, FIBROADIPOSE TISSUE, AND REACTIVE SYNOVIUM. Electronically Signed Josee Garcia M.D. Gross Description Received in formalin labeled "right knee bone," is a 13.0 x 12.0 x 2.0 cm aggregate of multiple portions of bone and soft tissue. The tibial plateau measures 8.0 x 5.8 x 1.4 cm. There are multiple areas of eburnation present, measuring up to 2.2 cm in greatest dimension. The remaining articular surfaces are dewitt-brown and diffusely granular. The underlying trabecular bone is yellow and hard. Steel Spar Operator sections are submitted in one cassette, following decalcification. /01/03/201901/03/2019
== END 2019-01-04 14:27 | disposition home health service (06) | DRG 470 ==
LOC: FM/S 09:06
PROVIDERS: ADMIT Orthopaedic Surgery; ATTEND Orthopaedic Surgery
PROC: 8E0YXCZ Robotic Assisted Procedure of Lower Extremity (ICD-10-PCS; 2019-01-02)
PROC: 0SRC0JA Replacement of Right Knee Joint with Synthetic Substitute, Uncemented, Open Approach (ICD-10-PCS; principal; 2019-01-02 13:22)
DX: M17.11 Unilateral primary osteoarthritis, right knee (principal); I10 Essential (primary) hypertension; N40.0 Benign prostatic hyperplasia without lower urinary tract symptoms; E78.5 Hyperlipidemia, unspecified; Z87.891 Personal history of nicotine dependence
CPT/HCPCS: 36415; 73560-TC-RT-FY; 85027; 86803; 87389; 88305-TC; 88311-TC; 94760; 97116-GP; 97163-GP; J0131; J0735

== ENCOUNTER 2020-02-12 21:37 | Emergency (ER) | payer OTHER ==
[2020-02-12 21:51] VITALS: PULSE 53; TEMP 98.1; BMI 41.9
[2020-02-12] MEDS ORDERED: ACETAMINOPHEN 650 MG/20.3 ML ORAL SOLUTION (CUPS) PO STA ×2 (23:16→23:18)
[2020-02-12] MEDS ORDERED: ACETAMINOPHEN 325 MG TABLET (FP) ONE (23:19)
--- NOTE | 2020-02-12 23:28 | PDOC ---
Documentation entered by Judie Soto SCRIBE, acting as scribe for Becca Dailey MD. Becca Dailey MD: This documentation has been prepared by the Jaime crowley Xhesika, SCRIBE, under my direction and personally reviewed by me in its entirety. I confirm that the documentation accurately reflects all work, treatment, procedures, and medical decision making performed by me. History of Present Illness - General Chief Complaint: Blood Pressure Problem Stated Complaint: HYPERTENSION Time Seen by Provider: 02/12/20 23:04 History Source: Patient, Family Exam Limitations: No Limitations - History of Present Illness Initial Comments: 02/12/20 23:09 The patient is a 63y/o M with a pmh of HTN (multiple medications) and dementia who presents to the ED with high blood pressure, headache and dizziness since last night. Pt states he felt dizzy last night, went to bed with a headache, and took 2 Excedrin with minimal relief. Pt states tonight he still felt dizzy, checked his BP and it was 200's systolic, prompting his arrival to the ED. Pt denies blurry vision, chest pain, SOB, fevers, chills, nausea, vomiting, and diarrhea. Allergies:NKDA PCP: Dr. Kelly Past History - Medical History Allergies/Adverse Reactions: Allergies Allergy/AdvReac Type Severity Reaction Status Date / Time No Known Drug Allergies Allergy Verified 01/02/19 09:41 Home Medications: Ambulatory Orders Aspirin [[place] Aspirin] 81 mg PO DAILY 06/17/15 Atorvastatin Ca [Lipitor] 20 mg PO HS 07/10/18 Amlodipine Besylate [Norvasc -] 5 mg PO DAILY #30 tablet 07/12/18 cloNIDine HCL [Catapres -] 0.1 mg PO TID #90 tablet 07/12/18 Azilsartan Medoxomil [Edarbi] 80 mg PO DAILY 12/25/18 Hydrochlorothiazide 25 mg PO DAILY 12/25/18 Nebivolol HCl [Bystolic] 20 mg PO BID 12/25/18 Tamsulosin HCl 0.4 mg PO HS 12/25/18 Aspirin [ASA -] 325 mg PO DAILY@0800 tablet 01/02/19 Oxycodone HCl/Acetaminophen [Percocet 5-325 mg Tablet -] 1 - 2 tab PO Q6H #50 tab MDD 8 01/02/19 Anemia: No Asthma: No Cancer: No Cardiac Disorders: No (HAS HAD CHEST PAIN 15 YEARS AGO,WORKED UP, NO SC) CVA: No COPD: No CHF: No Dementia: No Diabetes: No GI Disorders: No Disorders: Yes (BPH) HTN: Yes Hypercholesterolemia: Yes Liver Disease: No Seizures: No Thyroid Disease: No - Surgical History Abdominal Surgery: Yes (UMBILICAL HERNIA REPAIR) Appendectomy: Yes Cardiac Surgery: No Cholecystectomy: No Lung Surgery: No Neurologic Surgery: No Orthopedic Surgery: No - Immunization History Immunization Up to Date: Yes - Psycho-Social/Smoking History Smoking History: Never smoked Have you smoked in the past 12 months: No If you are a former smoker, when did you quit?: 22 YEARS AGO - Substance Abuse Hx (Audit-C & DAST Scrn) How often the patient has a drink containing alcohol: Never Score: In Men: 4 or > Positive; In Women: 3 or > Positive: 0 Screen Result (Pos requires Nsg. Audit-10AR): Negative Review of Systems - Review of Systems Able to Perform ROS?: Yes Comments:: 02/12/20 23:18 GENERAL/CONSTITUTIONAL: No fever or chills. No weakness. +elevated BP HEAD, EYES, EARS, NOSE AND THROAT: No change in vision. No ear pain or discharge. No sore throat. CARDIOVASCULAR: No chest pain or shortness of breath. RESPIRATORY: No cough, wheezing, or hemoptysis. GASTROINTESTINAL: No nausea, vomiting, diarrhea or constipation. GENITOURINARY: No dysuria, frequency, or change in urination. MUSCULOSKELETAL: No joint or muscle swelling or pain. No neck or back pain. SKIN: No rash NEUROLOGIC: +headache, +dizziness. No vertigo, loss of consciousness, or change in strength/sensation. ENDOCRINE: No increased thirst. No abnormal weight change. HEMATOLOGIC/LYMPHATIC: No anemia, easy bleeding, or history of blood clots. ALLERGIC/IMMUNOLOGIC: No hives or skin allergy. *Physical Exam - Vital Signs Last Vital Signs Temp Pulse Resp BP Pulse Ox 98.1 F 53 L 20 184/115 H 02/12/20 21:46 02/12/20 21:46 02/12/20 21:46 02/12/20 21:46 - Physical Exam 02/12/20 23:19 GENERAL: Awake, alert, and fully oriented, in no acute distress. HEAD: No signs of trauma LUNGS: Breath sounds equal, clear to auscultation bilaterally. No wheezes, and no crackles HEART: Regular rate and rhythm, normal S1 and S2, no murmurs, rubs or gallops ABDOMEN: +obese. Soft, nontender, normoactive bowel sounds. No guarding, no rebound. No masses EXTREMITIES: Normal range of motion, no edema. No clubbing or cyanosis. No cords, erythema, or tenderness NEUROLOGICAL: Cranial nerves II through XII grossly intact. normal gait SKIN: Warm, Dry, normal turgor, no rashes lesions noted. ED Treatment Course - LABORATORY CBC & Chemistry Diagram: 02/12/20 23:25 02/12/20 23:25 Medical Decision Making - Medical Decision Making 02/12/20 23:25 repeat ef=527/99 he denies chest pain,sob,confusion, speech difficulties ,visual changes or weakness of his arms or legs 02/12/20 23:36 plan ekg,labs,ct scan head 02/13/20 01:57 elg is unchanged from prior ekg negative troponin pt already has an echo scheduled with his cardiology imp essential HTN 02/13/20 02:07 ct scan head no acute intracranial pathology Discharge - Discharge Information Problems reviewed: Yes Clinical Impression/Diagnosis: Hypertension Qualifiers: Hypertension type: essential hypertension Qualified Code(s): I10 - Essential (primary) hypertension Headache Qualifiers: Headache type: tension-type Headache chronicity pattern: unspecified pattern Intractability: not intractable Qualified Code(s): G44.209 - Tension-type headache, unspecified, not intractable Condition: Stable - Admission No - Follow up/Referral Referrals: Wanda Kelly MD [Primary Care Provider] - - Patient Discharge Instructions Patient Printed Discharge Instructions: DI for High Blood Pressure Additional Instructions: Please follow up with Dr Kelly and take your blood pressure medications as prescribed Return of you have any worsening symptoms - Post Discharge Activity
[2020-02-12 23:39] LABS: HEMATOCRIT 49.6 % (35.4-49); HEMOGLOBIN 16.8 GM/dL (11.7-16.9); LYMPH % 19.6 % (8-40); MCH 31.3 pg (25.7-33.7); MCHC 33.9 g/dl (32.0-35.9); MEAN CELL VOLUME 92.5 fl (80-96); MEAN PLT VOLUME 9.7 fl (7.5-11.1); MONO % 7.2 % (3.8-10.2); NEUT % 70.2 % (42.8-82.8); PLATELET COUNT 231 K/MM3 (134-434); RBC 5.36 M/mm3 (4.00-5.60); RDW 13.8 % (11.9-15.9); WHITE BLOOD COUNT 9.4 K/mm3 (4.0-10.0)
[2020-02-12 23:46] VITALS: BP 158/99
[2020-02-13 00:36] LABS: ALBUMIN 3.4 g/dl (3.4-5.0); ALK PHOS 107 U/L (45-117); ANION GAP 8 MMOL/L (8-16); BILIRUBIN,TOTAL 0.4 mg/dL (0.2-1); BLOOD UREA NITROGEN 20.1 mg/dL (7-18); CALCIUM 9.1 mg/dL (8.5-10.1); CHLORIDE 103 mmol/L (98-107); CO2 28 mmol/L (21-32); CREATININE 1.2 mg/dL (0.55-1.3); GLUCOSE,RANDOM 172 mg/dL (74-106); POTASSIUM 3.9 mmol/L (3.5-5.1); SGOT/AST 22 U/L (15-37); SGPT/ALT 34 U/L (13-61); SODIUM 139 mmol/L (136-145)
--- NOTE | 2020-02-13 13:27 | EKG ---
Test Reason : Blood Pressure : / mmHG Vent. Rate : 053 BPM Atrial Rate : 053 BPM P-R Int : 174 ms QRS Dur : 098 ms QT Int : 454 ms P-R-T Axes : 047 -12 006 degrees QTc Int : 426 ms SINUS BRADYCARDIA INFERIOR INFARCT (CITED ON OR BEFORE 19-JUL-2012) ABNORMAL ECG Confirmed by MD NICOLE GREGORY ([id number]) on 02/13/2020 1:27:40 PM Referred By: Confirmed By:TEODORO NICOLE MD
== END 2020-02-13 02:00 | disposition home or self-care (01) ==
LOC: JER 21:37
DX: I10 Essential (primary) hypertension (principal)
CPT/HCPCS: 36415; 70450-TC; 80053; 84484; 85025; 93005; 93010; 99285-25

== ENCOUNTER 2021-04-03 10:14 | Emergency (ER) | payer OTHER ==
[2021-04-03 10:39] VITALS: BMI 43.5
[2021-04-03] MEDS ORDERED: ACETAMINOPHEN 1000 MG/100 ML VIAL IVPB ONE (11:26)
[2021-04-03] MEDS ORDERED: ACETAMINOPHEN INJECTION 100 ML IVPB ONE (11:39)
[2021-04-03 13:17] LABS: BASO % 1.1 % (0-2.0); EOS % 2.9 % (0-4.5); HEMATOCRIT 42.3 % (35.4-49); HEMOGLOBIN 15.3 GM/dL (11.7-16.9); LYMPH % 27.8 % (8-40); MCH 31.7 pg (25.7-33.7); MCHC 36.2 g/dl (32.0-35.9); MEAN CELL VOLUME 87.7 fl (80-96); MEAN PLT VOLUME 9.3 fl (7.5-11.1); MONO % 8.8 % (3.8-10.2); NEUT % 59.4 % (42.8-82.8); PLATELET COUNT 192 10^3/uL (134-434); RBC 4.82 M/mm3 (4.00-5.60); RDW 13.7 % (11.9-15.9); WHITE BLOOD COUNT 7.1 K/mm3 (4.0-10.0)
[2021-04-03 13:42] LABS: CHLORIDE 108 mmol/L (98-107); SODIUM 144 mmol/L (136-145)
[2021-04-03 13:44] LABS: CALCIUM 8.3 mg/dL (8.5-10.1); GLUCOSE,RANDOM 96 mg/dL (74-106)
[2021-04-03 13:45] LABS: ALBUMIN 3.2 g/dl (3.4-5.0); ANION GAP 4 MMOL/L (8-16); BLOOD UREA NITROGEN 16.4 mg/dL (7-18); CO2 32 mmol/L (21-32)
[2021-04-03 13:48] LABS: CREATININE 0.9 mg/dL (0.55-1.3); SGOT/AST 24 U/L (15-37); SGPT/ALT 38 U/L (13-61)
[2021-04-03 13:49] LABS: BILIRUBIN,TOTAL 0.4 mg/dL (0.2-1); TOT PROT 6.5 g/dl (6.4-8.2)
[2021-04-03 13:51] LABS: ALK PHOS 96 U/L (45-117)
[2021-04-03] MEDS ORDERED: hydrALAZINE HCL 10 MG TABLET PO ONE (14:08)
[2021-04-03] MEDS ORDERED: hydrALAZINE HCL 20 MG/ML VIAL ONE (14:19)
[2021-04-03 14:33] VITALS: TEMP 98
[2021-04-03] MEDS ORDERED: hydrALAZINE HCL 20 MG/ML VIAL IVPUSH ONE (14:38)
[2021-04-03 15:21] VITALS: BP 171/103; PULSE 74
== END 2021-04-03 16:09 | disposition home or self-care (01) ==
LOC: JER 10:14
PROC: 3E033NZ Introduction of Analgesics, Hypnotics, Sedatives into Peripheral Vein, Percutaneous Approach (ICD-10-PCS; principal; 2021-04-03)
PROC: 3E033GC Introduction of Other Therapeutic Substance into Peripheral Vein, Percutaneous Approach (ICD-10-PCS; 2021-04-03)
DX: I16.0 Hypertensive urgency (principal)
CPT/HCPCS: 36415; 80053; 82550; 84484; 85025; 93005; 93010; 99284-25; J0131

== ENCOUNTER 2021-11-12 17:24 | Emergency (ER) | payer OTHER ==
[2021-11-12 17:41] VITALS: TEMP 98.1; BMI 41.5
[2021-11-12] MEDS ORDERED: hydrALAZINE HCL 25 MG TABLET (FP) PO ONE (18:27)
[2021-11-12] MEDS ORDERED: hydrALAZINE HCL 25 MG TABLET (FP) ONE (18:38)
[2021-11-12 19:25] VITALS: BP 180/126; PULSE 83
== END 2021-11-12 19:33 | disposition home or self-care (01) ==
LOC: JER 17:24
DX: I10 Essential (primary) hypertension (principal)
CPT/HCPCS: 99283-25